=== PATIENT | female | born 1960 | race Caucasian/White ===

== ENCOUNTER 2024-08-20 08:09 | Outpatient (AMB) | payer BC, SELFPAY ==
[2024-08-20 08:13] VITALS: BP 128/60; BMI 24.0
--- NOTE | 2024-08-20 08:13 | MHC.PC.OV ---
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 Patient is not known to [facility]. Patient was previously being seen by PCP and has not been seen in over 4 years. She has a history of a heart attack 18 years ago and has a drug-eluting stent placed and has not been seen by Cardiology in several years. She has been smoking for the last 50 years and does mentioned that environmental factors affect her ability to quit. She lives in a household with several smokers and has a hard time with smoking cessation. She does mentioned she has left-sided shoulder pain for the last 4-5 months after having a fall. She denies any dizziness or lightheadedness prior to the fall the mentions as her balance and hitting her hip on the table and falling to the floor. She also mentions some left hip pain after this incident. [facility] Medical History (Updated 08/20/24 @ 12:29 by Ruby Baltazar PA-C) Myocardial infarct Family History (Updated 08/20/24 @ 08:31 by Ruby Baltazar PA-C) Brother Mouth cancer Social History Housing: House Patient Tobacco Use Status: Current everyday Tobacco user Cigarettes Per Day: 10 service: No Current occupational status: retired Cognitive needs: No Hearing needs: No Vision needs: Yes Questionnaire PHQ-9 Over the last 2 weeks, how often have you been bothered by any of the following problems? 1. Little interest or pleasure in doing things: not at all 2. Feeling down, depressed, or hopeless: not at all 3. Trouble falling or staying asleep, or sleeping too much: nearly every day 4. Feeling tired or having little energy: several days 5. Poor appetite or overeating: not at all 6. Feeling bad about yourself - or that you are a failure or have let yourself or your family down: several days 7. Trouble concentrating on things, such as reading the newspaper or watching television: nearly every day 8. Moving or speaking so slowly that other people could have noticed. Or the opposite - being so fidgety or restless that you have been moving around a lot more than usual: nearly every day 9. Thoughts that you would be better off or of hurting yourself in some way: not at all Total score: 11 Depression Screening Interpretation: Positive Depression Screening Follow-up: Existing condition Depression Screening Done: Yes [id number] - PHQ-9 Billing: Yes Source: Developed by Drs. Varghese Cheung, Luisa Broussard, Mike Reece and colleagues, with an educational ravi from [employer]. Thrive Questionnaire Date Thrive assessed: 08/20/24 I am a: Patient What is your living situation today?: I have a steady place to live Within the past 12 months, did the food you bought not last and you didn't have the money to get more?: Never true Within the past 12 months, did you worry whether your food would run out before you got money to buy more?: Never true Do you have trouble paying for medicines?: No Do you have trouble getting transportation to medical appointments?: Yes Do you have trouble paying your heating and electricity bill?: No Do you have trouble taking care of your child, family member or friend?: No Do you have trouble with day-to-day activities such as bathing, preparing meals, shopping, managing finances, etc.?: I choose not to answer this question Are you currently unemployed and looking for a job?: Yes Are you interested in more education?: No Please select the resources that you would like help with: None Currently or been in a relationship where the following occur: No concerns reported THRIVE Score: 1 AUDIT C Alcohol Use Questionnaire (AUDIT-C) 1. How often do you have a drink containing alcohol?: 2-4 times a month 2. How many drinks containing alcohol do you have on a typical day when you are drinking?: 1 or 2 3. How often do you have six or more drinks on one occasion?: Never Total Score: 2 SOCORRO-7 AMB Questionnaire SOCORRO-7 Date SOCORRO - 7 assessed: 08/20/24 Feeling nervous, anxious, or on edge: 0 = Not at all Not being able to stop or control worryin = Not at all Worrying too much about different things: 0 = Not at all Trouble relaxin = Not at all Being so restless that it is hard to sit still: 0 = Not at all Becoming easily annoyed or irritable: 0 = Not at all Feeling afraid as if something awful might happen: 0 = Not at all Total SOCORRO-7 score (0-4 normal; 5-9 mild; 10-14 moderate; 15-21 severe): 0 Source: Developed by Drs. Varghese Cheung, Luisa Broussard, Mike Reece and colleagues, with an educational ravi from [employer]. SOCORRO-7 Assessment Billing SOCORRO-7 Assessment Tool: SOCORRO-7 Assessment 73013 Review of Systems Const Denies body aches, Denies fatigue, Denies fever(s), Denies frequent falls, Denies headache(s) and Denies weakness Eyes Reports no additional complaints and Denies change in vision ENT Denies dysphagia, Denies dizziness, Denies facial pain, Denies headache(s), Denies nasal congestion and Denies odynophagia Card Denies chest pain, Denies syncope, Denies leg edema, Reports lightheadedness (with positional changes) and Denies dyspnea Resp Reports cough, Denies hemoptysis and Denies dyspnea GI Denies abdominal pain, Denies constipation, Denies dysphagia, Denies dyspepsia, Denies diarrhea, Denies nausea, Denies odynophagia and Denies vomiting Denies urinary frequency, Denies dysuria, Denies urinary hesitancy and Denies urinary urgency Musc Details: Left shoulder pain, left hip pain Denies back pain and Denies myalgias Skin/Breast Reports system reviewed and no additional complaints, except as documented Neuro Denies dizziness, Denies syncope, Denies frequent falls, Denies headache(s) and Denies weakness Psych Reports no additional complaints Endo Denies fatigue Physical exam (Primary Care) Vital Signs: Last Vital Signs BP 128/60 08/20/24 08:13 Oxygen Delivery Method Room Air 08/20/24 08:13 BMI result Body Mass Index 24.0 Tobacco/Smoking Status: Tobacco use Status Tobacco use date assessed 08/20/24 08/20/24 08:25 Patient Tobacco Use Status Current everyday Tobacco 08/20/24 08:25 Are you ready to quit: Yes Tobacco cessation counseling provided: Yes Items discussed: Nicotine replacement Relapse Prevention: discussed negative mood or depression after quitting and discussed dietary, exercise and/or lifestyle changes PHQ-9: PHQ-9 Score PHQ-9: Total score 11 08/20/24 08:44 Depression Screening Interpretation: Positive Depression Screening Follow-up: Existing condition Thrive Assessment: Date of Thrive Assessment Date Thrive assessed 08/20/24 08/20/24 08:25 Currently or been in a relationship where the following occur: No concerns reported Const General: cooperative, healthy appearing, comfortable and no acute distress Orientation/consciousness: patient oriented x3 HENMT Head: Yes normocephalic Ears: hearing grossly normal bilaterally General nose exam: Normal external nose present Eyes General: appearance normal, both eyes and all related structures Conjunctivae: conjunctivae normal Neck Neck: Yes full ROM and Yes no lymphadenopathy Resp Effort & Inspection: normal respiratory effort Auscultation: clear to auscultation bilaterally, no crackles, no rales, no rhonchi and no wheezes Cardio Rate: regular rate Rhythm: regular rhythm Skin General skin exam: no rashes or lesions noted Neuro General: patient oriented x3 Gait exam (Neuro): Normal gait present Extrem Other: Tenderness to palpation of left shoulder and pain with active range of motion General: Yes normal to inspection, Yes full ROM and No edema Psych Affect: normal affect Attitude: cooperative Insight: Good insight present (Psych) Judgement: Good judgement present (Psych) Coding Level of Care Code New Pt Level 4 (53438) Diagnoses Myocardial infarct I21.9 Screening for colorectal cancer Z12.11; Z12.12 Screening for breast cancer Z12.39 Left shoulder pain M25.512 Left hip pain M25.552 Tobacco abuse Z72.0 Additional Codes SOCORRO-7 Assessment Billing - SOCORRO-7 Assessment Tool: SOCORRO-7 Assessment 46499 ([id number]) Assessment & Plan Assessment & Plan (1) Myocardial infarct: Comment: 2018 Code(s): I21.9 - Acute myocardial infarction, unspecified Category: Medical Plan: She has a history of [place] 2018 and subsequent anoxic brain injury. Has not had follow up or blood work done in several years. Ordered for updated blood work and referral placed for Cardiology to establish new care. (2) Screening for colorectal cancer: Code(s): Z12.11 - Encounter for screening for malignant neoplasm of colon; Z12.12 - Encounter for screening for malignant neoplasm of rectum Category: Medical Plan: Referral placed for Cologuard testing. Patient has never had any screening for colorectal cancer. (3) Screening for breast cancer: Code(s): Z12.39 - Encounter for other screening for malignant neoplasm of breast Category: Medical Plan: Patient has last screened for mammogram several years ago it is not up-to-date. Order placed for mammogram. (4) Left shoulder pain: Code(s): M25.512 - Pain in left shoulder Category: Medical Plan: Patient complaining of left shoulder pain after a fall. Ordered for shoulder x-ray further evaluation. (5) Left hip pain: Code(s): M25.552 - Pain in left hip Category: Medical Plan: Patient complaining of pain in the left hip but declining x-ray at this time. Continue to monitor symptoms. (6) Tobacco abuse: Code(s): Z72.0 - Tobacco use Category: Medical Plan: Smoking cigarettes and the use of tobacco can be harmful. We discussed the importance of stopping and options to aid in smoking cessation. Lung cancer screening referral placed and nicotine patches sent. Plan This note was constructed using voice recognition software. While every effort has been made to ensure accuracy and case management coordinator, still areas may have been included sometimes these areas may affect the content or meeting of the given symptoms. Total time spent caring for the patient today was 30 minutes. This includes time spent before the visit reviewing the chart, time spent during the visit, and time spent after the visit and documentation. Orders: Orders MM tomosynthesis screening BI Today Z12.31 - Encounter for screening mammogram for malignant neoplasm of breast Complete Blood Count Auto Diff Today Z00.00 - Encounter for general adult medical examination without abnormal findings Comprehensive Met. Panel Today Z00.00 - Encounter for general adult medical examination without abnormal findings Lipid Panel Today Z00.00 - Encounter for general adult medical examination without abnormal findings TSH reflex Free T4 Today Z00.00 - Encounter for general adult medical examination without abnormal findings Vitamin D 25-OH (D2 and D3) Today Z00.00 - Encounter for general adult medical examination without abnormal findings XR shoulder LT min 2V Today M25.512 - Pain in left shoulder Free T4 (Free Thyroxine) Today Z00.00 - Encounter for general adult medical examination without abnormal findings Hemoglobin A1c Today Z00.00 - Encounter for general adult medical examination without abnormal findings Vitamin B12 and Folate Today Z00.00 - Encounter for general adult medical examination without abnormal findings Referrals Cardiology Referral I21.9 - Acute myocardial infarction, unspecified Lung Cancer Screening Referral Z72.0 - Tobacco use Cologuard Test Z12.11 - Encounter for screening for malignant neoplasm of colon Medications: New nicotine 1 patch transdermal DAILY 14 ea 0RF
== END 2024-08-20 08:52 | disposition home or self-care (01) ==
PROVIDERS: PCP Internal Medicine
DX: I21.9 Acute myocardial infarction, unspecified (principal); Z12.11 Encounter for screening for malignant neoplasm of colon; Z12.12 Encounter for screening for malignant neoplasm of rectum; Z12.39 Encounter for other screening for malignant neoplasm of breast; M25.512 Pain in left shoulder; M25.552 Pain in left hip; Z72.0 Tobacco use

== ENCOUNTER → 2024-08-20 08:09 | Outpatient (BNVA) | payer MEDICARE, BC, SELFPAY | PROVIDERS: PCP Internal Medicine | DX: I21.9 Acute myocardial infarction, unspecified (principal); M25.512 Pain in left shoulder; M25.552 Pain in left hip; Z72.0 Tobacco use; Z71.6 Tobacco abuse counseling | CPT/HCPCS: 96127 ==

== ENCOUNTER 2024-10-08 11:08 | Outpatient (REF) | payer MEDICARE, BC, SELFPAY ==
--- NOTE | ~2024-10-08 | MM_ITS ---
EXAMINATION: MM SCREENING DIGITAL BREAST TOMOSYNTHESIS, BILATERAL CLINICAL INFORMATION: Screening. Asymptomatic. COMPARISON: Mammography: Comparison is made with available priors TECHNIQUE: Digital breast mammography with tomosynthesis is performed in both the craniocaudal and mediolateral oblique views along with computer-aided detection (CAD). FINDINGS: There are scattered areas of fibroglandular density (ACR BI-RADS breast composition Category b). There are no significant masses, abnormal calcifications, or other abnormalities. MM/MM tomosynthesis screening BI IMPRESSION: No mammographic evidence of malignancy. ASSESSMENT: BI-RADS BI-RADS 1 - Negative RECOMMENDATION: Routine annual mammography screening. 1 year F/U This examination should not preclude the clinical evaluation of a suspicious palpable abnormality. This patient's information was entered into a reminder system with a target due date for their next mammogram. Electronically signed by: Elen Stiles DO 10/29/2024 09:59 AM [facility]
[2024-10-08 12:11] LABS: MANUAL DIFF FLAG NO
[2024-10-08 12:54] LABS: Estimated Average Glucose 108 mg/dL; Hemoglobin A1C 125.8413 umol/L; Hemoglobin A1c % 5.4 % (<6.0); Total Hemoglobin (HGBA1C) 3568.3635 umol/L
[2024-10-08 12:57] LABS: Basophils Absolute Auto 0.1 X10*3/uL (0.0-0.2); Basophils Percent Auto 0.7 % (0-2); Eosinophils Absolute Auto 0.2 X10*3/uL (0.0-0.4); Eosinophils Percent Auto 1.8 % (0-4); Hematocrit 42.2 % (37.0-47.0); Imm Gran Abs Auto 0.03 X10*3/uL (0.00-0.03); Imm Gran Pct Auto 0.4 % (0.0-0.4); Lymphocytes Absolute Auto 2.1 X10*3/uL (1.2-4.9); Lymphocytes Percent Auto 24.6 % (20-40); Mean Corpuscular HGB Conc 33.2 g/dl (31.0-35.0); Mean Corpuscular Hemoglobin 31.5 pg (27.0-33.0); Mean Corpuscular Volume 94.8 fL (80.0-98.0); Mean Platelet Volume 9.6 fL (9.4-12.3); Monocytes Absolute Auto 0.5 X10*3/uL (0.1-1.2); Monocytes Percent Auto 5.6 % (2-11); Neutrophils Absolute Auto 5.6 x10*3/uL (2.0-8.3); Neutrophils Percent Auto 66.9 % (45-73); Platelet Count 311 X10*3/uL (160-400); Red Blood Count 4.45 X10*6/uL (4.20-5.50); Red Cell Distribution Width 12.1 % (11.0-16.0); White Blood Count 8.4 X10*3/uL (4.8-10.8)
[2024-10-08 13:28] LABS: Alanine Aminotransferase 15 U/L (0-31); Albumin Level 4.1 g/dL (3.5-5.0); Alkaline Phosphatase 107 U/L (39-117); Anion Gap 11 (12-20); Aspartate Amino Transferase 19 U/L (5-31); Bilirubin Total 0.3 mg/dL (0.0-1.0); Blood Urea Nitrogen 16 mg/dL (9-16); Calcium 9.5 mg/dL (8.4-10.2); Carbon Dioxide 29 mmol/L (22-29); Chloride 108 mmol/L (96-108); Cholesterol 213 mg/dL (<200); Estimated Glomerular Filt Rate > 60; Glucose Random 114 mg/dL (60-115); HDL Cholesterol 60 mg/dL (>40); LDL Cholesterol Calculated 130 mg/dL (<100); Potassium 4.4 mmol/L (3.3-5.1); Sodium 144 mmol/L (135-145); Total Protein 7.6 g/dL (6.5-8.0); Triglycerides 117 mg/dL (<150)
[2024-10-08 13:34] LABS: Free T4 (Free Thyroxine) 1.12 ng/dL (0.71-1.85); TSH reflex Free T4 2.64 uIU/mL (0.32-4.0)
[2024-10-08 13:43] LABS: Folate 8.9 ng/mL (> or = 4.0); Vitamin B12 514 pg/mL (200-900)
[2024-10-12 16:24] LABS: Vitamin D 25-OH, D2 <4 ng/mL; Vitamin D 25-OH, D3 36 ng/mL; Vitamin D 25-OH, Total 36 ng/mL (30-100)
== END 2024-10-08 11:09 | disposition home or self-care (01) ==
LOC: HO.MAMMO 11:08
DX: Z00.00 Encounter for general adult medical examination without abnormal findings (principal); Z12.31 Encounter for screening mammogram for malignant neoplasm of breast; M25.512 Pain in left shoulder; Z13.1 Encounter for screening for diabetes mellitus
CPT/HCPCS: 36415; 73030; 77063; 77067; 80053; 80061; 82306; 82607; 82746; 83036; 84439; 84443; 85025

== ENCOUNTER → 2024-10-08 11:15 | Outpatient (BNV) | payer MEDICARE, BC, SELFPAY | PROVIDERS: Visit Provider Internal Medicine | DX: Z12.31 Encounter for screening mammogram for malignant neoplasm of breast (principal) | CPT/HCPCS: 77063; 77067 ==

== ENCOUNTER 2024-10-26 10:20 | Outpatient (AMB) | payer MEDICARE, BC, SELFPAY ==
--- NOTE | 2024-10-26 07:42 | MHC.OFFVIS ---
Intake Visit Reasons: Current Smoker Allergies No Known Allergies Allergy (Verified 08/20/24 08:26) HPI HPI Current Smoker: Details: Initial visit for this 64yo smoker with a 30PYH. Patient started smoking at age 14 for 50 years at 1/2-3/4ppd. Now at 1/4-1/2ppd. . Reports daily marijuana use. Repots social second hand smoke exposure. Denies exposure to chemicals or substances like asbestos. . Denies known family history of lung cancer. Brother at 61yo of throat cancer. Denies personal history of cancers. Denies chest CT in last year. . Denies recent travel outside the [place]. Denies recent respiratory illness or recent hospitalization for respiratory issues. Denies testing positive for COVID. Admits receiving COVID Vaccine. x 3. . Denies fever, chills, new/worsening cough, hemoptysis, hoarseness or dysphagia. Denies significant chest pain, significant dyspnea or unintentional weight loss. Patient Lung Cancer Screening Questionnaire reviewed with patient by provider. . Shared Decision Making Completed. Patient meets criteria. Discussed in detail with patient, the risk vs benefit of LDCT screening. Patient consents to proceed with scan. Discussed smoking cessation. [facility] Medical History (Updated 10/26/24 @ 10:48 by Chelo Macias PA-C) CAD (coronary artery disease) History of myocardial infarction Nicotine dependence, cigarettes, uncomplicated Surgical History (Updated 10/26/24 @ 10:40 by Chelo Macias PA-C) History of loop electrical excision procedure (LEEP) History of heart artery stent Family History (Updated 08/20/24 @ 08:31 by Ruby Baltazar PA-C) Brother Mouth cancer Social History (Updated 10/26/24 @ 10:33 by Chelo Macias PA-C) Housing: House Patient Tobacco Use Status: Current everyday Tobacco user Cigarettes Per Day: 10 Years Smoked: (onset 14yo, 1/2-3/4ppd x 50yrs, now 10/27-1/2ppd - 30pyh) service: No Current occupational status: retired Cognitive needs: No Hearing needs: No Vision needs: Yes Assessment & Plan Assessment & Plan (1) Nicotine dependence, cigarettes, uncomplicated: Comment: (onset 14yo, 1/2-3/4ppd x 50yrs, now 10/27-1/2ppd - 30pyh) Code(s): F17.210 - Nicotine dependence, cigarettes, uncomplicated Category: Medical Plan: - SDM visit completed today in office. - Patient meets criteria for LDCT for lung cancer screening purposes and is asymptomatic. - Smoking cessation counseling offered. Patients can always call [phone]. - Will arrange for a LDCT scan of the chest for screening purposes at [facility]. - Risks, benefits, and alternatives were discussed in detail and the patient agrees to proceed. - Risks discussed include but are not limited to: radiation exposure, anxiety during testing and while awaiting results, false negatives, false positives and possibility of additional intervention such as further imaging or surgical procedures for benign disease. - Benefits are obviously detection of lung cancer at an early stage which can lead to improved outcomes. - Discussed the importance of screening program compliance with adherence to yearly LDCT scan as scheduled - or sooner interval scans for personalized screening regimen. - Discussed follow up plan. Our office will send a letter discussing results and if needed set up phone call and office visit based on CT findings. - Patient educated on results categorization and the management decisions for suspicious findings potentially found on the screening LDCT scan. Any patient with a Lung RADS score of 3 or 4 will be reviewed by a multidisciplinary team at [facility] to form a plan of action in regards to scan findings. - If further work up is warranted for a suspicious lung finding this will be followed by the Lung Cancer Screening program in conjunction with the Thoracic Surgery Department at [facility]. - A copy of the office note and LDCT will be sent to the patient's PCP - as well as documentation on any associated further plans of care. - Incidental findings on LDCT are the PCP's responsibility. These findings are indicated with an S finding on the LDCT Assessment. A note discussing the findings will be sent to the PCP who is then responsible for further management. - All questions answered.? Coding Level of Care Code Lung Cancer Screening G0296 Diagnoses Nicotine dependence, cigarettes, uncomplicated F17.210
== END 2024-10-26 12:44 | disposition home or self-care (01) ==
PROVIDERS: Visit Provider Physician Assistant Medical
DX: F17.210 Nicotine dependence, cigarettes, uncomplicated (principal)
CPT/HCPCS: G0296

== ENCOUNTER 2024-10-26 10:45 | Outpatient (REF) | payer MEDICARE, BC, SELFPAY ==
--- NOTE | ~2024-10-26 | CT_ITS ---
EXAMINATION: CT LUNG SCREENING HISTORY: Smoking history TECHNIQUE: Low dose axial images were obtained from the sternal notch to upper abdomen without IV contrast per standard departmental protocol. Sagittal and coronal reformatted images were also obtained and reviewed. One or more of the following techniques was used for dose reduction: Automated exposure control, adjustment of the mA and/or kV according to patient size, use of iterative reconstruction technique. DLP: 44 mGy-cm COMPARISON: There are no prior studies for comparison. FINDINGS: Lung nodules: There are scattered punctate calcified granulomas in both lungs. No additional pulmonary nodules are identified. Emphysema: none Coronary Calcification: moderate Aortic Arch Calcification: mild Potentially Significant Incidentals : none Additional Chest Findings: There is no pleural or pericardial effusion. No mediastinal or axillary lymphadenopathy is identified. Visualized upper abdomen: The visualized portions of the liver, spleen, and adrenals have an unremarkable unenhanced appearance. There is a small hiatal hernia. CT/CT lung screening IMPRESSION: No suspicious pulmonary nodules are identified. LUNG-RADS ASSESSMENT: Lung-RADS 2: Benign MANAGEMENT: Continue annual screening with LDCT in 12 months Category S: N/A Electronically signed by: Varghese Gusman MD 10/29/2024 08:27 AM [facility]
== END 2024-10-26 10:46 | disposition home or self-care (01) ==
LOC: HO.CT 10:45
PROVIDERS: Visit Provider Physician Assistant Medical
DX: Z12.2 Encounter for screening for malignant neoplasm of respiratory organs (principal); F17.210 Nicotine dependence, cigarettes, uncomplicated
CPT/HCPCS: 71271; G0296

== ENCOUNTER → 2024-10-26 10:47 | Outpatient (BNV) | payer MEDICARE, BC, SELFPAY | PROVIDERS: Visit Provider Radiology Diagnostic Radiology | DX: Z87.891 Personal history of nicotine dependence (principal) | CPT/HCPCS: 71271 ==

== ENCOUNTER 2024-10-29 09:06 | Outpatient (AMB) | payer MEDICARE, BC, SELFPAY ==
[2024-10-29 09:09] VITALS: BP 124/80; PULSE 90; O2SAT 97; BMI 23.5
--- NOTE | 2024-10-29 09:09 | A.OFFPC_ITS ---
Vital Signs 10/29/24 09:09 Height 5 ft Weight 120 lb 6 oz BMI 23.5 BP 124/80 Blood Pressure Location Lt brachial Position Sitting Pulse 90 Pulse Source Pulse Oximeter Pulse Oximetry (%) 97 Oxygen Delivery Method Room Air Intake Visit Reasons: annual exam Comb Winder Required: No Accompanied by: Self / Same As Patient Allergies No Known Allergies Allergy (Verified 10/29/24 09:30) Medication List - Last Reconciled 10/29/24 by Ruby Baltazar PA-C aspirin 81 mg PO DAILY calcium carbonate (Tums) 200 mg PO BID cholecalciferol (vitamin D3) 50 mcg PO DAILY clopidogrel 75 mg PO DAILY donepezil 5 mg PO BEDTIME nicotine 1 patch transdermal DAILY simvastatin 80 mg PO BEDTIME Tobacco use date assessed: 10/29/24 Dental Screening Dental Screen Date: 10/29/24 Did you have a dental visit in the last 12 months?: No Did you have a dental problem in the last 6 months where you did not have access to dental care?: No Was dental information given to patient?: No HPI annual exam HPI Details 64-year-old female with past medical his tory of hyperlipidemia, coronary artery disease and history of myocardial infarction last seen July 2024 coming in for annual exam.? In review of the notes, patient was seen by pulmonology annual lung cancer screening which was negative follow up in one year. Cologuard negative done 2023 repeat in 3 years. Mammogram completed will follow up in one year. Patient tells us today she discontinue the Chantix as it was helping her to smoke more often. She is down to 4 cigarettes per day from half a pack. She continues to have left-sided shoulder pain awaiting x-ray at this time. She also mentioned she has a diffuse rash that we will start as a pustule and she will pick at it until it is a flat rash and has scars from this. This has been going on since 2017. [facility] Medical History CAD (coronary artery disease) History of myocardial infarction Hyperlipidemia Nicotine dependence, cigarettes, uncomplicated Surgical History History of loop electrical excision procedure (LEEP) History of heart artery stent Family History Brother Mouth cancer Social History Housing: House Patient Tobacco Use Status: Current everyday Tobacco user Cigarettes Per Day: 10 Years Smoked: (onset 14yo, 1/2-3/4ppd x 50yrs, now 14-1/2ppd - 30pyh) e-Cigarette/Vaping Use: Never Used service: No Current occupational status: retired Cognitive needs: No Hearing needs: No Vision needs: Yes Questionnaire PHQ-9 Over the last 2 weeks, how often have you been bothered by any of the following problems? 1. Little interest or pleasure in doing things: not at all 2. Feeling down, depressed, or hopeless: not at all 3. Trouble falling or staying asleep, or sleeping too much: nearly every day 4. Feeling tired or having little energy: several days 5. Poor appetite or overeating: not at all 6. Feeling bad about yourself - or that you are a failure or have let yourself or your family down: several days 7. Trouble concentrating on things, such as reading the newspaper or watching television: nearly every day 8. Moving or speaking so slowly that other people could have noticed. Or the opposite - being so fidgety or restless that you have been moving around a lot more than usual: nearly every day 9. Thoughts that you would be better off or of hurting yourself in some way: not at all Total score: 11 Depression Screening Interpretation: Positive Depression Screening Follow-up: Existing condition and New Medication prescribed Depression Screening Done: Yes 16167 - PHQ-9 Billing: Yes Source: Developed by Drs. Varghese Cheung, Luisa Broussard, Mike Reece and colleagues, with an educational ravi from [employer]. Thrive Questionnaire Date Thrive assessed: 10/29/24 I am a: Patient What is your living situation today?: I have a steady place to live Within the past 12 months, did the food you bought not last and you didn't have the money to get more?: I choose not to answer this question Within the past 12 months, did you worry whether your food would run out before you got money to buy more?: I choose not to answer this question Do you have trouble paying for medicines?: I choose not to answer this question Do you have trouble getting transportation to medical appointments?: I choose not to answer this question Do you have trouble paying your heating and electricity bill?: I choose not to answer this question Do you have trouble taking care of your child, family member or friend?: I choose not to answer this question Do you have trouble with day-to-day activities such as bathing, preparing meals, shopping, managing finances, etc.?: I choose not to answer this question Are you currently unemployed and looking for a job?: I choose not to answer this question Are you interested in more education?: I choose not to answer this question Please select the resources that you would like help with: None Currently or been in a relationship where the following occur: I choose not to answer THRIVE Score: 0 AUDIT C Alcohol Use Questionnaire (AUDIT-C) 1. How often do you have a drink containing alcohol?: Never Total Score: 0 SOCORRO-7 AMB Questionnaire SOCORRO-7 Date SOCORRO - 7 assessed: 10/29/24 Feeling nervous, anxious, or on edge: 0 = Not at all Not being able to stop or control worryin = Not at all Worrying too much about different things: 0 = Not at all Trouble relaxin = Not at all Being so restless that it is hard to sit still: 0 = Not at all Becoming easily annoyed or irritable: 0 = Not at all Feeling afraid as if something awful might happen: 0 = Not at all Total SOCORRO-7 score (0-4 normal; 5-9 mild; 10-14 moderate; 15-21 severe): 0 Source: Developed by Drs. Varghese Cheung, Luisa Broussard, Mike Reece and colleagues, with an educational ravi from [employer]. Review of Systems Const Denies body aches, Denies fatigue, Denies fever(s), Denies frequent falls, Denies headache(s) and Denies weakness Eyes Details: Dr. Vyas. Cataracts Reports no additional complaints, Denies change in vision and Reports requires corrective lenses ENT Denies dizziness, Denies facial pain, Denies headache(s) and Denies nasal congestion Card Denies chest pain, Denies syncope, Denies irregular heart rhythm, Denies leg edema, Denies lightheadedness and Denies dyspnea Resp Denies cough and Denies dyspnea GI Denies abdominal pain, Denies constipation, Denies dyspepsia, Denies diarrhea, Denies nausea and Denies vomiting Denies urinary frequency, Denies dysuria, Denies urinary hesitancy and Denies urinary urgency Musc Denies back pain and Denies myalgias Skin/Breast Reports system reviewed and no additional complaints, except as documented Neuro Denies dizziness, Denies syncope, Denies frequent falls, Denies headache(s) and Denies weakness Psych Reports no additional complaints Endo Denies fatigue Physical exam (Primary Care) Vital Signs: Last Vital Signs Pulse 90 10/29/24 09:09 BP 124/80 10/29/24 09:09 Pulse Ox 97 10/29/24 09:09 Oxygen Delivery Method Room Air 10/29/24 09:09 BMI result Body Mass Index 23.5 Tobacco/Smoking Status: Tobacco use Status Tobacco use date assessed 10/29/24 10/29/24 09:10 Patient Tobacco Use Status Current everyday Tobacco 10/29/24 09:10 e-Cigarette/Vaping Use Never Used 10/29/24 09:10 Are you ready to quit: No Tobacco cessation counseling provided: Yes Items discussed: Nicotine replacement Relapse Prevention: discussed extending NRT, weight gain after smoking is common and discussed dietary, exercise and/or lifestyle changes Number of minutes spent counselin CPT code: 47938 - 4-10 Minutes PHQ-9: PHQ-9 Score PHQ-9: Total score 11 10/29/24 09:44 Depression Screening Interpretation: Positive Depression Screening Follow-up: Existing condition and New Medication prescribed Thrive Assessment: Date of Thrive Assessment Date Thrive assessed 10/29/24 10/29/24 09:10 Currently or been in a relationship where the following occur: I choose not to answer Const General: cooperative, healthy appearing, comfortable and no acute distress Orientation/consciousness: patient oriented x3 HENMT Head: Yes normocephalic Ears: hearing grossly normal bilaterally, external ears normal, TM's normal bilaterally and EAC's normal General nose exam: Normal external nose present Face and sinus: Yes normal facial exam and Yes sinuses nontender Mouth: Normal oral and palatal mucosa present and tongue normal Throat: Yes posterior oropharynx normal Eyes General: appearance normal, both eyes and all related structures Conjunctivae: conjunctivae normal Pupils: Equal, round and reactive pupils present EOM: EOMs intact bilaterally and No Nystagmus present Neck Neck: Yes normal visual inspection, Yes full ROM and Yes no lymphadenopathy Chest Chest palpation & inspection: normal inspection of the chest Resp Effort & Inspection: normal respiratory effort Auscultation: clear to auscultation bilaterally, no crackles, no rales, no rhonchi, no wheezes and breath sounds present Cardio Rate: regular rate Rhythm: regular rhythm Peripheral pulses: radial pulses present and dorsalis pedis present GI Inspection: Yes normal to inspection and No Abdominal wall edema Palpation (GI): Soft to palpation, not firm and nontender Auscultation: normal bowel sounds Rectal Exam - Female: deferred General: Yes no CVA tenderness Back/Spine/Pelvis Back: no CVA tenderness Skin General skin exam: no rashes or lesions noted Neuro General: patient oriented x3 Cranial nerves: Yes Equal, round and reactive pupils present, Yes Midline tongue present, Yes Ability to bilaterally elevate shoulders present and No Nystagmus present Gait exam (Neuro): Normal gait present Extrem General: Yes normal to inspection, Yes full ROM, No no pedal edema and No edema Psych Speech and movement: Normal speech and movement present Affect: normal affect Insight: Good insight present (Psych) Judgement: Good judgement present (Psych) Coding Level of Care Code Est Pt Level 3 (98337) Est Pt Prev Care 40-64y(18741) Diagnoses Hyperlipidemia E78.5 CAD (coronary artery disease) I25.10 History of myocardial infarction I25.2 Nicotine dependence, cigarettes, uncomplicated F17.210 Screening for breast cancer Z12.39 Screening for colorectal cancer Z12.11; Z12.12 Annual physical exam Z00.00 Shortness of breath R06.02 Rash R21 Left shoulder pain M25.512 Depression F32.A Additional Codes PHQ-9 - 90950 - PHQ-9 Billing: Yes ([id number]) Vital Signs *Quality* - CPT code: 22845 - 4-10 Minutes ([id number]) Assessment & Plan Assessment & Plan (1) Hyperlipidemia: Code(s): E78.5 - Hyperlipidemia, unspecified Category: Medical Plan: Avoid foods that are high in cholesterol such as red meat, fried foods, eggs and baked goods. Triglyceride goal of less than 150 and LDL goal of less than 70. Given patient's history of myocardial infarction and coronary artery disease with drug-eluting stent recommending high-intensity statin. ASCVD risk score is elevated and recommending statin. Patient was previously on simvastatin 80 mg but has not taken his medication in several months. We will start on rosuvastatin 5 mg daily. Follow up in 3 months with repeat cholesterol labs (2) CAD (coronary artery disease): Comment: (Hx NE and POLI to LAD 06/2006) Code(s): I25.10 - Atherosclerotic heart disease of [place] coronary artery without angina pectoris Category: Medical Plan: Patient has history of coronary artery disease and myocardial infarction has a appointment with Cardiology scheduled in the next coming months. Advised good control of blood pressure, blood sugar and cholesterol. On aspirin and rosuvastatin. (3) History of myocardial infarction: Comment: (history of NE 2005 and subsequent anoxic brain injury) Code(s): I25.2 - Old myocardial infarction Category: Medical Plan: Has a appointment with Cardiology in the next coming months. (4) Nicotine dependence, cigarettes, uncomplicated: Comment: (onset 14yo, 1/2-3/4ppd x 50yrs, now 1/4-1/2ppd - 30pyh) Code(s): F17.210 - Nicotine dependence, cigarettes, uncomplicated Category: Medical Plan: Smoking cigarettes and the use of tobacco can be harmful. We discussed the importance of stopping and options to aid in smoking cessation. Lung cancer screening program enrolled and recent CT was negative. Continue to use nicotine replacement therapy. (5) Screening for breast cancer: Code(s): Z12.39 - Encounter for other screening for malignant neoplasm of breast Category: Medical Plan: Completed follow up in 1 year. (6) Screening for colorectal cancer: Code(s): Z12.11 - Encounter for screening for malignant neoplasm of colon; Z12.12 - Encounter for screening for malignant neoplasm of rectum Category: Medical Plan: Patient completed Cologuard testing which was negative follow up in 3 years. (7) Annual physical exam: Code(s): Z00.00 - Encounter for general adult medical examination without abnormal findings Category: Medical Plan: Patient is up-to-date on all recommended routine screenings and vaccinations for her age. Blood work is up-to-date we will follow up in 3 months for repeat cholesterol. (8) Shortness of breath: Code(s): R06.02 - Shortness of breath Category: Medical Plan: Patient complaining of occasional shortness of breath she is a current everyday smoker states with long distances she will become short of breath without any chest pain. Ordered for pulmonary function testing. (9) Rash: Code(s): R21 - Rash and other nonspecific skin eruption Category: Medical Plan: Patient complaining of nonspecific rash advised to use topical emollients such as Aquaphor or Vaseline and referral placed to Dermatology. (10) Left shoulder pain: Code(s): M25.512 - Pain in left shoulder Category: Medical Plan: Patient complaining of left shoulder pain awaiting x-ray at this time. Can c onsider orthopedics or physical therapy referral. (11) Depression: Code(s): F32.A - Depression, unspecified Category: Medical Plan: Patient has a history of depression previously being treated with fluoxetine. She has not been on fluoxetine in several years but stated was helpful in low doses. We will restart on fluoxetine 10 mg and follow up in 3 months. Plan This note was constructed using voice recognition software. While every effort has been made to ensure accuracy and [employer], still areas may have been included sometimes these areas may affect the content or meeting of the given symptoms. Total time spent caring for the patient today was 30 minutes. This includes time spent before the visit reviewing the chart, time spent during the visit, and time spent after the visit and documentation. Orders: Orders Lipid Panel 3 Months E78.00 - Pure hypercholesterolemia, unspecified PFT pulmonary function test Today F17.210 - Nicotine dependence, cigarettes, uncomplicated, R06.02 - Shortness of breath Liver Panel Today E78.5 - Hyperlipidemia, unspecified Referrals Dermatology Referral R21 - Rash and other nonspecific skin eruption Medications: New fluoxetine 10 mg PO DAILY 90 tabs 2RF rosuvastatin 5 mg PO DAILY 90 tabs 3RF
== END 2024-10-29 10:08 | disposition home or self-care (01) ==
DX: Z00.00 Encounter for general adult medical examination without abnormal findings (principal); E78.5 Hyperlipidemia, unspecified; I25.10 Atherosclerotic heart disease of native coronary artery without angina pectoris; I25.2 Old myocardial infarction; F17.210 Nicotine dependence, cigarettes, uncomplicated; Z12.39 Encounter for other screening for malignant neoplasm of breast; Z12.11 Encounter for screening for malignant neoplasm of colon; Z12.12 Encounter for screening for malignant neoplasm of rectum; R06.02 Shortness of breath; R21 Rash and other nonspecific skin eruption; M25.512 Pain in left shoulder; F32.A Depression, unspecified

== ENCOUNTER → 2024-10-29 09:06 | Outpatient (BNVA) | payer MEDICARE, BC, SELFPAY | DX: Z00.00 Encounter for general adult medical examination without abnormal findings (principal); I25.10 Atherosclerotic heart disease of native coronary artery without angina pectoris; I25.2 Old myocardial infarction; F17.210 Nicotine dependence, cigarettes, uncomplicated; R06.02 Shortness of breath; R21 Rash and other nonspecific skin eruption; M25.512 Pain in left shoulder; F32.A Depression, unspecified; E78.00 Pure hypercholesterolemia, unspecified | CPT/HCPCS: 96127; 99212; 99396 ==

== ENCOUNTER 2024-11-30 09:10 | Outpatient (REF) | payer MEDICARE, BC, SELFPAY ==
--- NOTE | 2024-11-30 09:19 | PFT_ITS ---
Flows: FEV1: 115 % of predicted at 2.44 L FVC: 109 % of predicted at 2.93 L FEV1/FVC: 83 % Bronchodilator response: Present in small to medium airways only Volumes: Total lung capacity: 94 % of predicted at 4.22 L Residual volume: 79 % of predicted at 1.27 L Slow vital capacity: 101 % of predicted at 2.94 L Expiratory reserve volume: 179 % of predicted at 1.21 L Diffusion capacity: Normal Impression: No obstructive or restrictive ventilatory defect. Bronchodilator response is present in small to medium airways only. MTDD
== END 2024-11-30 09:11 | disposition home or self-care (01) ==
LOC: HO.RESP 09:10
DX: R06.02 Shortness of breath (principal); F17.210 Nicotine dependence, cigarettes, uncomplicated
CPT/HCPCS: 94010; 94640; 94727; 94729

== ENCOUNTER → 2024-11-30 09:19 | Outpatient (BNV) | payer MEDICARE, BC, SELFPAY | PROVIDERS: Visit Provider Internal Medicine Pulmonary Disease | DX: R06.02 Shortness of breath (principal); F17.210 Nicotine dependence, cigarettes, uncomplicated | CPT/HCPCS: 94060; 94727; 94729 ==

== ENCOUNTER → 2024-12-14 15:14 | Outpatient (BNVA) | payer MEDICARE, BC, SELFPAY | PROVIDERS: Visit Provider Internal Medicine | DX: I25.10 Atherosclerotic heart disease of native coronary artery without angina pectoris (principal); E78.5 Hyperlipidemia, unspecified; F17.210 Nicotine dependence, cigarettes, uncomplicated; R94.31 Abnormal electrocardiogram [ECG] [EKG] | CPT/HCPCS: 93005; 99202 ==

== ENCOUNTER 2025-01-28 08:21 | Outpatient (AMB) | payer MEDICARE, BC, SELFPAY ==
--- NOTE | 2025-01-28 08:24 | A.OFFPC_ITS ---
Vital Signs 01/28/25 08:25 Height 5 ft Weight 117 lb 6 oz BMI 22.9 BP 132/76 Blood Pressure Location Lt brachial Position Sitting Pulse 90 Pulse Source Pulse Oximeter Temp 96.6 F L Temp Source Temporal Artery Scan Pulse Oximetry (%) 99 Oxygen Delivery Method Room Air Intake Visit Reasons: f/u cholesterol Intake Note: Patient is here to follow up on Cholesterol. Can Pusher Required: No Personal Care Home Administrator: Not Required per policy Accompanied by: Self / Same As Patient Allergies No Known Allergies Allergy (Verified 01/28/25 08:32) Medication List - Last Reconciled 01/28/25 by Ruby Baltazar PA-C aspirin 81 mg PO DAILY calcium carbonate (Tums) 200 mg PO BID cholecalciferol (vitamin D3) 50 mcg PO DAILY fluoxetine 10 mg PO DAILY rosuvastatin 5 mg PO DAILY Tobacco use date assessed: 01/28/25 Dental Screening Dental Screen Date: 10/29/24 HPI f/u cholesterol HPI Details 64-year-old female with past medical his tory of hyperlipidemia, coronary artery disease and history of myocardial infarction last seen 10/2024 coming in for follow up. In review of the notes, patient was seen by Cardiology 12/14/2024 plan for echocardiogram/stress perfusion imaging study and continue on aspirin/statins. Patient completed her pulmonary function tests 12/04/2024 showing no obstructive or restrictive ventilatory defect. She is due for blood work and did not complete cholesterol labs. Presenting for a follow-up concerning her cardiovascular management, shoulder pain, and skin rash. Patient's prior myocardial infarction requires close management of her cholesterol, currently on rosuvastatin (5 mg). Previous episodes of elevated cholesterol now at 130 mg/dL, with target under 70 mg/dL due to cardiovascular history. Experiencing chronic shoulder pain potentially linked to rotator cuff issues, possibly muscular; aggravated by lifting and heavy use. Reports a persistent skin rash, predominately on her back, potentially attributable to a fungal infection. [facility] Medical History CAD (coronary artery disease) History of myocardial infarction Hyperlipidemia Nicotine dependence, cigarettes, uncomplicated Surgical History History of loop electrical excision procedure (LEEP) History of heart artery stent Family History Brother Mouth cancer Father Cerebral aneurysm Maternal Grandmother Heart attack Other Substance use disorder Social History Housing: House Alcohol intake: current Alcohol intake frequency: holidays/special occasions only Patient Tobacco Use Status: Current everyday Tobacco user Tobacco use type: Cigarette Cigarette Packs Per Day: 0.5 Cigarettes Per Day: 10 Years Smoked: (onset 14yo, 1/2-3/4ppd x 50yrs, now 10/27-1/2ppd - 30pyh) e-Cigarette/Vaping Use: Never Used Second Hand Smoke Exposure: Yes service: No Current occupational status: retired Cognitive needs: No Hearing needs: No Vision needs: Yes Questionnaire Thrive Questionnaire Date Thrive assessed: 10/29/24 I am a: Patient What is your living situation today?: I have a steady place to live Within the past 12 months, did the food you bought not last and you didn't have the money to get more?: I choose not to answer this question Within the past 12 months, did you worry whether your food would run out before you got money to buy more?: I choose not to answer this question Do you have trouble paying for medicines?: I choose not to answer this question Do you have trouble getting transportation to medical appointments?: I choose not to answer this question Do you have trouble paying your heating and electricity bill?: I choose not to answer this question Do you have trouble taking care of your child, family member or friend?: I choose not to answer this question Do you have trouble with day-to-day activities such as bathing, preparing meals, shopping, managing finances, etc.?: I choose not to answer this question Are you currently unemployed and looking for a job?: I choose not to answer this question Are you interested in more education?: I choose not to answer this question Please select the resources that you would like help with: None Currently or been in a relationship where the following occur: I choose not to answer THRIVE Score: 0 AUDIT C Alcohol Use Questionnaire (AUDIT-C) 2. How many drinks containing alcohol do you have on a typical day when you are drinking?: 3 or 4 3. How often do you have six or more drinks on one occasion?: Never Total Score: 1 SOCORRO-7 AMB Questionnaire SOCORRO-7 Date SOCORRO - 7 assessed: 10/29/24 Source: Developed by Drs. Varghese Cheung, Luisa Broussard, Mike Reece and colleagues, with an educational ravi from [employer]. Review of Systems Const Denies body aches, Denies chills, Denies fever(s), Denies headache(s) and Denies poor appetite Eyes Reports no additional complaints ENT Denies dizziness and Denies headache(s) Card Denies chest pain, Denies syncope, Denies edema, Denies irregular heart rhythm, Denies lightheadedness and Denies dyspnea Resp Denies cough and Denies dyspnea GI Denies abdominal pain, Denies constipation, Denies diarrhea, Denies nausea and Denies vomiting Reports no additional complaints Musc Details: left shoulder pain Reports no additional complaints and Denies abnormal gait Skin/Breast Details: She hypopigmented rash on upper back Neuro Denies abnormal gait, Denies dizziness, Denies syncope and Denies headache(s) Psych Reports no additional complaints Physical exam (Primary Care) Vital Signs: Last Vital Signs Temp 96.6 F L 01/28/25 08:25 Pulse 90 01/28/25 08:25 BP 132/76 01/28/25 08:25 Pulse Ox 99 01/28/25 08:25 Oxygen Delivery Method Room Air 01/28/25 08:25 BMI result Body Mass Index 22.9 Tobacco/Smoking Status: Tobacco use Status Tobacco use date assessed 01/28/25 01/28/25 08:31 Patient Tobacco Use Status Current everyday Tobacco 01/28/25 08:31 Tobacco use type Cigarette 01/28/25 08:31 e-Cigarette/Vaping Use Never Used 01/28/25 08:31 Thrive Assessment: Date of Thrive Assessment Date Thrive assessed 10/29/24 01/28/25 08:31 Currently or been in a relationship where the following occur: I choose not to answer Const General: cooperative, healthy appearing, comfortable and no acute distress Orientation/consciousness: patient oriented x3 HENMT Head: Yes normocephalic Ears: hearing grossly normal bilaterally General nose exam: Normal external nose present Eyes General: appearance normal, both eyes and all related structures Conjunctivae: conjunctivae normal Neck Neck: Yes full ROM and Yes no lymphadenopathy Resp Effort & Inspection: normal respiratory effort Auscultation: clear to auscultation bilaterally, no crackles, no rales, no rhonchi and no wheezes Cardio Rate: regular rate Rhythm: regular rhythm Skin Other: Areas of hypopigmentation on the upper back and bilateral shoulders in patches. No tenderness to palpation no areas of erythema. There are areas of excoriation from where the patient has been scratching General skin exam: no rashes or lesions noted Neuro General: patient oriented x3 Gait exam (Neuro): Normal gait present Extrem General: Yes normal to inspection, Yes full ROM and No edema Psych Affect: normal affect Attitude: cooperative Insight: Good insight present (Psych) Judgement: Good judgement present (Psych) Coding Level of Care Code Est Pt Level 4 (20708) Diagnoses Hyperlipidemia E78.5 CAD (coronary artery disease) I25.10 Nicotine dependence, cigarettes, uncomplicated F17.210 Rash R21 Left shoulder pain M25.512 Assessment & Plan Assessment & Plan (1) Hyperlipidemia: Code(s): E78.5 - Hyperlipidemia, unspecified Category: Medical Plan: Avoid foods that are high in cholesterol such as red meat, fried foods, eggs and baked goods. Triglyceride goal of less than 150 and LDL goal of less than 70. Continue on rosuvastatin 5 mg. I updated the blood work ordered reminded patient about blood work. (2) CAD (coronary artery disease): Comment: (Hx CA and POLI to LAD 06/2006) Code(s): I25.10 - Atherosclerotic heart disease of [place] coronary artery without angina pectoris Category: Medical Plan: Recently seen by Cardiology echocardiogram and stress test ordered. Continue on aspirin. We will likely need to increase the rosuvastatin however patient is due for blood work. Reminded patient about blood work. (3) Nicotine dependence, cigarettes, uncomplicated: Comment: (onset 14yo, 1/2-3/4ppd x 50yrs, now 1/4-1/2ppd - 30pyh) Code(s): F17.210 - Nicotine dependence, cigarettes, uncomplicated Category: Medical Plan: Lung cancer screening performed 10/2024 clear advised to follow up in 1 year. Smoking cigarettes and the use of tobacco can be harmful. We discussed the importance of stopping and options to aid in smoking cessation. (4) Rash: Code(s): R21 - Rash and other nonspecific skin eruption Category: Medical Plan: Patient has areas of hypopigmentation of the upper back in bilateral shoulders consistent with probable tinea versicolor.Plan to start on topical terbinafine and advised to follow up with fire prevention captain if rash is not clear. (5) Left shoulder pain: Code(s): M25.512 - Pain in left shoulder Category: Medical Plan: Patient complaining of chronic left shoulder pain recent x-ray was negative for arthritis or abnormality. Advised heating pad and Tylenol as needed for pain. I did also recommend physical therapy or orthopedic evaluation which was declined today. Plan I will continue monitoring the patient's cardiovascular health by closely eval uating her cholesterol levels, adjusting her current rosuvastatin dosage if necessary. Immediate bloodwork is to be completed, enabling further assessment of her lipid profile. Her shoulder pain management plan includes obro-kls-vlxlgvy analgesics, potential physical therapy if symptoms persist, and avoidance of aggravating activities. For the persistent skin rash, I prescribed terbinafine cream and stressed the importance of dermatology follow-up should the condition not improve. The patient also received counseling on dietary habits and lifestyle changes to aid her cardiovascular and overall health. This note was constructed using voice recognition software. While every effort has been made to ensure accuracy and ict customer support officer, still areas may have been included sometimes these areas may affect the content or meeting of the given symptoms. Total time spent caring for the patient today was 20 minutes. This includes time spent before the visit reviewing the chart, time spent during the visit, and time spent after the visit and documentation. Patient was informed and verbally consented to the use of an ambient scribe for clinic note documentation during this visit. Medications: New terbinafine HCl 1% (Antifungal (terbinafine)) 1 appl topical BID 30 grams 0RF
[2025-01-28 08:25] VITALS: BP 132/76; PULSE 90; TEMP 35.9; O2SAT 99; BMI 22.9
== END 2025-01-28 08:58 | disposition home or self-care (01) ==
LOC: HO.HMCH 08:21
DX: E78.5 Hyperlipidemia, unspecified (principal); I25.10 Atherosclerotic heart disease of native coronary artery without angina pectoris; F17.210 Nicotine dependence, cigarettes, uncomplicated; R21 Rash and other nonspecific skin eruption; M25.512 Pain in left shoulder

== ENCOUNTER → 2025-01-28 08:21 | Outpatient (BNVA) | payer MEDICARE, BC, SELFPAY | DX: E78.5 Hyperlipidemia, unspecified (principal); I25.10 Atherosclerotic heart disease of native coronary artery without angina pectoris; R21 Rash and other nonspecific skin eruption; M25.512 Pain in left shoulder; F17.210 Nicotine dependence, cigarettes, uncomplicated; Z71.6 Tobacco abuse counseling | CPT/HCPCS: 99212 ==

== ENCOUNTER → 2025-03-22 08:06 | Outpatient (REF) | payer MEDICARE, BC, SELFPAY ==
--- NOTE | ~2025-03-22 | NM_ITS ---
Lexiscan Myocardial perfusion study Indication: Coronary artery disease Technique: The patient was brought in for a Lexiscan perfusion study on 03/22/2025 and was injected 0.4 mg of Lexiscan intravenously. Within a minute of this injection 25 mCi of sestamibi was given intravenously. Images were obtained using the SPECT gamma camera interlaced with the gating device. Images were obtained in supine position. Resting perfusion study was performed on 03/26/2025. Patient was administered 25 mCi of sestamibi intravenously at rest. Images were then obtained in supine position. Total DLP 61 mGy-cm. Images were processed with the software and compared side to side in short axis, horizontal long axis and vertical long axis views. Findings: Raw aquisition reviewed. The stress perfusion study showed diminished tracer uptake along the anterior wall, most prominent towards the apex. There is no significant change with CT attenuation correction. The gated study shows normal LV systolic function with calculated LVEF of 61%. LV cavity is normal in size. The gated study shows reduced contractility in the anterior wall most prominent towards the apex. Resting study shows reduced tracer uptake in the anterior wall, most prominent towards the apex. No significant change with CT attenuation correction. Gating at rest reveals reduced contractility in the anterior wall, worse in the apical portion and ejection fraction at 70%. The findings are consistent with mostly fixed anterior perfusion defect and minimal reversibility. NM/NM cardiolite stress test Impression: 1. Myocardial perfusion imaging study shows prior infarction in the anterior wall and septum; most prominent towards the distal anterior wall; minimal to mild luiz-infarct ischemia. 2. Gated LVEF is 61% during stress and 70% during rest. 3. Transient ischemic dilatation not present. EKG component of the test reported separately. Electronically signed by: Edmundo Rutherford MD 03/27/2025 03:42 PM EDT
--- NOTE | 2025-03-22 08:10 | CA_ITS ---
Acquisition Time: 2025-03-22 08:47:51 Total Exercise Time: 00:00:43 Test Indications: Dyspnea Medications: ASA FLUOXETINE ROSUVASTATIN Protocol: LOBITO Max HR: 110 BPM 70% of Pred: 156 BPM Max BP: 122/58 mmHG Max Work Load: 2.2 METS Exercise stress test with exercise 43 secs of Lobito Protocol, requesting to stop due to hip pain. Test switched to Lexiscan. Pharmacological stress test with Lexiscan while pt swings her legs in chair, with reports of headache and chin tightness, without any arrythmias, with normotensive response to injection. Nondiagnostic EKG for ischemia. In recovery, pt treated with IVP Aminophylline 75 mg to reverse Lexiscan after which pt feeling back to baseline. Nuclear images pending. Test reviewed with Dr. Michele. Referred By: Edmundo Rutherford Electronically Signed By: Ankit Rajan
--- NOTE | 2025-03-22 08:10 | CA_ITS ---
Transthoracic Echocardiogram Patient (Last, First, Middle): Marce Harding, Gender: Female Date of : 1960 Age: 65 Procedure Date: 03/22/2025 Procedure Type: Transthoracic Echocardiogram Location: OP Height: 152. 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 Study Quality: Adequate ECG Rhythm: Sinus Conclusions: - 1. Normal LV ejection fraction of 60 65% with grade 1 diastolic dysfunction 2. Normal cardiac valvular Dopplers 3. Normal RV systolic pressure 4. No gross pericardial effusion Findings Left Ventricle Normal left ventricular size, thickness, and systolic function. The visually estimated ejection fraction is between 60-65%. Spectral Doppler is indicative of an impaired relaxation filling pattern. E/E prime ratio is <8, consistent with normal filling pressures. Evidence suggests grade I (mild) diastolic dysfunction. Right Ventricle Normal right ventricular cavity size and systolic function. Atria Both atria are normal in size. There is no evidence of interatrial shunt. Aortic Valve Normal aortic valve structure and function. There is no aortic valve stenosis. There is no aortic valve regurgitation. Mitral Valve Likely normal mitral valve structure and function. There is trace mitral valve regurgitation. There is no mitral valve stenosis. Pulmonic Valve The pulmonic valve was not well visualized. Tricuspid Valve Likely normal tricuspid valve structure and function. There is trace tricuspid valve regurgitation. The right ventricular systolic pressure is normal. The right ventricular systolic pressure is 16 mmHg. Normal right atrial pressure. There is no evidence of pulmonary hypertension. Great Vessels All visible segments of the aorta are normal in size. The pulmonary artery was not well visualized. Venous The inferior vena cava is normal in size and collapses greater than 50% with inspiration. Pericardium/Pleural There is no evidence of pericardial effusion. Prior Study Comparison No prior study available for comparison. Measurements 2D Linear Measurements IVSd: 0.59 0.6-0.9/0.6-1.0 cm LVIDd: 4.22 3.9-5.3/4.2-5.9 cm LVIDd Index: 2.85 2.4-3.2/2.2-3.1 cm/m2 LVIDs: 3.01 2.0-3.6 cm LVPWd: 0.72 0.7-1.1 cm LA Diam: 3.50 2.7-3.8/3.0-4.0 cm LAIDs Index: 2.36 1.5-2.3 cm/m2 LV Mass: 98.01 67-162/88-224 g LV Mass Index: 66.22 43-95/49-115 g/m2 LVOT Diam: 1.90 3.0+(-)1.3 cm 2D Systolic Function EF 4C: 56.10 >55% EF 2C: 65.70 >55% EF BiP: 61.40 >55% Mitral Valve MV Pk E: 0.68 MV PK A: 0.79 MV Decel Time: 202.00 E/A: 0.90 E'Lateral: 9.68 E'Medial: 9.03 E/E' Med: 7.50 E/E' Lat: 7.00 PHT: 59.00 MVA PHT: 3.73 Decel Loup: 3.35 Aortic Valve AoV Pk Niko: 1.00 AoV Mn Niko: 0.71 AoV VTI: 0.24 AoV Pk Grad: 4.00 Aov Mn Grad: 2.00 SHAWANDA Cont.VTI: 2.27 LVOT LVOT Pk Niko: 0.75 LVOT Mn Niko: 0.55 LVOT VTI: 0.19 LVOT Pk Grad: 2.00 LVOT Mn Grad: 1.00 LVOT Diam: 1.90 LVOT Area: 2.84 Diastolic Function MV Pk E: 0.68 MV Pk A: 0.79 E/A: 0.90 E'Medial: 9.03 E/E' Med: 7.50 E' Laterial: 9.68 E/E' Lat: 7.00 Right Ventricle TAPSE (mm): 18.40 TVS' Niko: 8.81 Tricuspid Valve TR Pk Niko: 1.81 TR Pk Grad: 13.00 RA Press: 3.00 RVSP: 16.00 Great Vessels Aorta Sinus of Valsalva: 3.00 2.0-3.5 cm Ao Asc: 3.00 2.1-3.4 cm Ao Arch: 2.50 Pulmonary Valve PV Pk Niko: 0.60 Peak PV Grad: 1.00 Updated in Other Vendor System with Status of Final wJ Michele MD electronically signed on 03/23/2025 10:52:34 AM with status of Final
== END ==
LOC: HO.CARD 08:06
PROVIDERS: Visit Provider Internal Medicine
DX: R07.2 Precordial pain (principal); I25.10 Atherosclerotic heart disease of native coronary artery without angina pectoris
CPT/HCPCS: 78452; 93017; 93306; A9500; J0280; J2785

== ENCOUNTER → 2025-03-22 08:10 | Outpatient (BNV) | payer MEDICARE, BC, SELFPAY | DX: R06.02 Shortness of breath (principal) | CPT/HCPCS: 78452; 93016; 93018; 93320; 93325; 93350 ==

== ENCOUNTER 2025-03-27 14:49 | Outpatient (AMB) | payer MEDICARE, BC, SELFPAY ==
[2025-03-27 14:57] VITALS: BP 120/78; PULSE 93; BMI 22.4
--- NOTE | 2025-03-27 14:57 | MHC.OFFVIS ---
Vital Signs 03/27/25 14:57 Height 5 ft Weight 114 lb 10.246 oz BMI 22.4 BP 120/78 Blood Pressure Location Lt brachial Position Sitting Pulse 93 Intake Visit Reasons: 3mth/stress/mibi/echo Intake Note: 3 month follow-up stress and echo feeling good Lithographic Plate Maker Apprentice Required: No Sketcher: Sketcher Present Accompanied by: Family/Other Allergies No Known Allergies Allergy (Verified 01/28/25 08:32) Medication List - Last Reconciled 03/27/25 by Ankit Rajan NP aspirin 81 mg PO DAILY calcium carbonate (Tums) 200 mg PO BID cholecalciferol (vitamin D3) 50 mcg PO DAILY fluoxetine 10 mg PO DAILY rosuvastatin 5 mg PO DAILY terbinafine HCl 1% (Antifungal (terbinafine)) 1 appl topical BID HPI Comments Details: This is a 65-year-old female patient coming in for a follow-up visit. Patient with a history of hyperlipidemia, coronary artery disease status post LAD PCI in 2005, and current smoker. Patient was previously seen in the office for some shortness of breath. Subsequently underwent an echocardiogram and a myocardial perfusion study. Today patient is reporting feeling well overall and denies any cardiac symptoms including exertional chest pain, shortness of breath, palpitations, dizziness, orthopnea, PND, leg edema, presyncope, or syncope. Patient is affirming compliance with all her medications. Patient does make a note that she had had some gap in continuation of care due to issues with new PCP's establishment in the past few years. [facility] Medical History CAD (coronary artery disease) History of myocardial infarction Hyperlipidemia Nicotine dependence, cigarettes, uncomplicated Surgical History History of loop electrical excision procedure (LEEP) History of heart artery stent Family History Brother Mouth cancer Father Cerebral aneurysm Maternal Grandmother Heart attack Other Substance use disorder Social History Housing: House Alcohol intake: current Alcohol intake frequency: holidays/special occasions only Patient Tobacco Use Status: Current everyday Tobacco user Tobacco use type: Cigarette Cigarette Packs Per Day: 0.5 Cigarettes Per Day: 10 Years Smoked: (onset 14yo, 1/2-3/4ppd x 50yrs, now 1/4-1/2ppd - 30pyh) e-Cigarette/Vaping Use: Never Used Second Hand Smoke Exposure: Yes service: No Current occupational status: retired Cognitive needs: No Hearing needs: No Vision needs: Yes Review of Systems Const Denies chills, Denies fatigue, Denies fever(s), Denies frequent falls, Denies weakness, Denies weight gain and Denies weight loss ENT Denies dizziness Card Denies chest pain, Denies leg edema, Denies lightheadedness, Denies palpitations, Denies dyspnea, Denies dyspnea on exertion, Denies orthopnea and Denies other (loss of consciousness) Resp Denies cough, Denies dyspnea and Denies dyspnea on exertion GI Denies hematochezia and Denies change in stool character Musc Denies abnormal gait, Denies muscle weakness, Denies numbness, Denies radiating pain into limb and Denies tingling Neuro Denies abnormal gait, Denies dizziness, Denies frequent falls, Denies numbness, Denies tingling and Denies weakness Endo Denies fatigue and Denies palpitations Physical Exam Vital Signs: Last Vital Signs Pulse 93 03/27/25 14:57 BP 120/78 03/27/25 14:57 BMI result Body Mass Index 22.4 Assessment & Plan Assessment & Plan (1) CAD (coronary artery disease): Code(s): I25.10 - Atherosclerotic heart disease of [place] coronary artery without angina pectoris Category: Medical (2) Hyperlipidemia: Code(s): E78.5 - Hyperlipidemia, unspecified Category: Medical Plan 03/22/2025-echo study showed a normal LV systolic function with an ejection fraction between 60-65% with grade 1 diastolic dysfunction. 03/22/2025-patient underwent a myocardial perfusion study that showed prior infarction in the anterior wall and septum- most prominent towards the distal anterior wall and minimal to mild luiz-infarct ischemia. - reviewed with Dr. Rutherford. History of NE and coronary artery disease, status post LAD PCI in 2005. Patient is currently clinically stable with no cardiac symptoms. Continue lifelong aspirin therapy. We will also start the patient on a low-dose metoprolol therapy. If any new symptoms arise, we will consider diagnostic cardiac catheterization. The patient is in agreement with this plan. Most recent LDL is elevated at 130. Patient states that she was recently started on Crestor 5 mg and will increase this to 40 mg. We will repeat a lipid profile in 3 months. Blood pressure is within normal limits. Advised regular home monitoring with a goal of less than 130/80. Advised heart healthy diet, regular exercise, medication adherence, complete smoking cessation, and aggressive management of vascular risk factors. We will follow up with the patient in 4 months. In the interim, patient will call the office with any concerns or change in symptoms. Advised patient to seek ER care in case of exertional chest pain not resolved with rest. This note was generated using voice recognition software. While every effort has been made to ensure accuracy and proper direct support professional, there may be occasional errors that could affect the content or meaning of the described symptoms. Orders: Orders Basic Metabolic Panel 3 Months I25.10 - Atherosclerotic heart disease of [place] coronary artery without angina pectoris Lipid Panel 3 Months I25.10 - Atherosclerotic heart disease of [place] coronary artery without angina pectoris Liver Panel 3 Months I25.10 - Atherosclerotic heart disease of [place] coronary artery without angina pectoris Medications: New metoprolol succinate ER 25 mg PO DAILY 90 tabs 3RF rosuvastatin 40 mg PO DAILY 90 tabs 3RF Discontinued rosuvastatin Discontinued Reason: Doctor's Order 5 mg PO DAILY 90 tabs 3RF Coding Level of Care Code Est Pt Level 4 (53525) Complex EM visit Add On G2211 Diagnoses CAD (coronary artery disease) I25.10 Hyperlipidemia E78.5 Time Spent (min) 32 Comment Time spent in reviewing the chart, test results, assessment, counseling and documentation.
== END 2025-03-27 15:28 | disposition home or self-care (01) ==
LOC: HO.HCS 14:50
DX: I25.10 Atherosclerotic heart disease of native coronary artery without angina pectoris (principal); E78.5 Hyperlipidemia, unspecified
CPT/HCPCS: 99214; G2211

== ENCOUNTER → 2025-03-27 14:49 | Outpatient (BNVA) | payer MEDICARE, BC, SELFPAY | DX: I25.10 Atherosclerotic heart disease of native coronary artery without angina pectoris (principal); E78.5 Hyperlipidemia, unspecified | CPT/HCPCS: 99212 ==

== ENCOUNTER 2025-04-29 08:20 | Outpatient (AMB) | payer MEDICARE, BC, SELFPAY ==
--- NOTE | 2025-04-29 08:23 | MHC.PC.OV ---
Vital Signs 04/29/25 08:24 Height 5 ft Weight 120 lb 4 oz BMI 23.5 BP 124/68 Blood Pressure Location Lt brachial Position Sitting Pulse 84 Pulse Source Pulse Oximeter Temp 97.1 F Temp Source Temporal Artery Scan Pulse Oximetry (%) 97 Oxygen Delivery Method Room Air Intake Visit Reasons: f/u HLD and rash Accompanied by: Spouse Allergies No Known Allergies Allergy (Verified 04/29/25 08:28) Medication List - Last Reconciled 04/29/25 by Ruby Baltazar PA-C aspirin 81 mg PO DAILY calcium carbonate (Tums) 200 mg PO BID cholecalciferol (vitamin D3) 50 mcg PO DAILY fluoxetine 10 mg PO DAILY metoprolol succinate ER 25 mg PO DAILY rosuvastatin 40 mg PO DAILY terbinafine HCl 1% (Antifungal (terbinafine)) 1 appl topical BID Tobacco use date assessed: 04/29/25 Fall risk assessment: No Falls in past year Last assessed Fall Risk: 04/29/25 Dental Screening Dental Screen Date: 04/29/25 Did you have a dental visit in the last 12 months?: No Did you have a dental problem in the last 6 months where you did not have access to dental care?: No Was dental information given to patient?: Patient has dentist HPI f/u HLD and rash HPI Details 64-year-old female with past medical history of hyperlipidemia, coronary artery disease and history of myocardial infarction last seen 01/2025 coming in for follow up.?In review of the notes, patient was seen by Cardiology 03/2025 her rosuvastatin was increased to 40 mg with repeat cholesterol in 3 months and started on low-dose metoprolol. Presenting for follow-up on multiple conditions including a rash, smoking cessation, coronary artery disease, hyperlipidemia, and hip pain. The patient reports a persistent rash that has not fully resolved with previous treatment. She has been using a cream that provided some relief but ran out of it and did not get a refill. The rash is described as having white edges and hard scabs. There is a family history of similar skin conditions, but the current presentation does not fully match psoriasis. The patient continues to smoke despite previous attempts to quit using nicotine patches, which made her feel unwell. She is considering trying Wellbutrin again, which she had used in the past with some success. The patient has a history of a heart attack, making smoking cessation a priority. The patient has a history of coronary artery disease with stent placement. Recent tests, including a stress test, showed reassuring results, but there was a note about suboptimal flow through the stent. The patient is asymptomatic with no chest pain or dyspnea reported. The patient's cholesterol levels were previously high, leading to an increase in her rosuvastatin dosage. The goal is to maintain cholesterol levels below 70 mg/dL due to her coronary artery disease and stent. The patient reports pain in the hip area, which affects her mobility. The pain is described as tender and possibly related to a bursa or muscular issue. An x-ray of the hip is planned to further investigate the cause. [facility] Medical History CAD (coronary artery disease) History of myocardial infarction Hyperlipidemia Nicotine dependence, cigarettes, uncomplicated Surgical History History of loop electrical excision procedure (LEEP) History of heart artery stent Family History Brother Mouth cancer Father Cerebral aneurysm Maternal Grandmother Heart attack Other Substance use disorder Social History Housing: House Alcohol intake: current Alcohol intake frequency: holidays/special occasions only Patient Tobacco Use Status: Current everyday Tobacco user Tobacco use type: Cigarette Cigarette Packs Per Day: 0.5 Cigarettes Per Day: 10 Years Smoked: (onset 14yo, 1/2-3/4ppd x 50yrs, now 1/4-1/2ppd - 30pyh) e-Cigarette/Vaping Use: Never Used Second Hand Smoke Exposure: Yes service: No Current occupational status: retired Cognitive needs: No Hearing needs: No Vision needs: Yes Questionnaire PHQ-9 Over the last 2 weeks, how often have you been bothered by any of the following problems? 1. Little interest or pleasure in doing things: not at all 2. Feeling down, depressed, or hopeless: not at all 3. Trouble falling or staying asleep, or sleeping too much: nearly every day 4. Feeling tired or having little energy: several days 5. Poor appetite or overeating: not at all 6. Feeling bad about yourself - or that you are a failure or have let yourself or your family down: several days 7. Trouble concentrating on things, such as reading the newspaper or watching television: nearly every day 8. Moving or speaking so slowly that other people could have noticed. Or the opposite - being so fidgety or restless that you have been moving around a lot more than usual: nearly every day 9. Thoughts that you would be better off or of hurting yourself in some way: not at all Total score: 11 Depression Screening Interpretation: Positive Depression Screening Follow-up: Existing condition and New Medication prescribed Depression Screening Done: Yes 70903 - PHQ-9 Billing: Yes Source: Developed by Drs. Varghese Cheung, Luisa Broussard, Mike Reece and colleagues, with an educational ravi from [employer]. Thrive Questionnaire Date Thrive assessed: 10/29/24 I am a: Patient What is your living situation today?: I have a steady place to live Within the past 12 months, did the food you bought not last and you didn't have the money to get more?: I choose not to answer this question Within the past 12 months, did you worry whether your food would run out before you got money to buy more?: I choose not to answer this question Do you have trouble paying for medicines?: I choose not to answer this question Do you have trouble getting transportation to medical appointments?: I choose not to answer this question Do you have trouble paying your heating and electricity bill?: I choose not to answer this question Do you have trouble taking care of your child, family member or friend?: I choose not to answer this question Do you have trouble with day-to-day activities such as bathing, preparing meals, shopping, managing finances, etc.?: I choose not to answer this question Are you currently unemployed and looking for a job?: I choose not to answer this question Are you interested in more education?: I choose not to answer this question Please select the resources that you would like help with: None Currently or been in a relationship where the following occur: I choose not to answer THRIVE Score: 0 AUDIT C Alcohol Use Questionnaire (AUDIT-C) 1. How often do you have a drink containing alcohol?: Monthly or less 2. How many drinks containing alcohol do you have on a typical day when you are drinking?: 3 or 4 3. How often do you have six or more drinks on one occasion?: Never Total Score: 2 SOCORRO-7 AMB Questionnaire SOCORRO-7 Date SOCORRO - 7 assessed: 10/29/24 Feeling nervous, anxious, or on edge: 0 = Not at all Not being able to stop or control worryin = Not at all Worrying too much about different things: 0 = Not at all Trouble relaxin = Not at all Being so restless that it is hard to sit still: 0 = Not at all Becoming easily annoyed or irritable: 0 = Not at all Feeling afraid as if something awful might happen: 0 = Not at all Total SOCORRO-7 score (0-4 normal; 5-9 mild; 10-14 moderate; 15-21 severe): 0 Source: Developed by Drs. Varghese Cheung, Luisa Broussard, Mike Reece and colleagues, with an educational ravi from [employer]. Review of Systems Const Denies body aches, Denies chills, Denies fever(s), Denies headache(s) and Denies poor appetite Eyes Reports no additional complaints ENT Denies dysphagia, Denies dizziness, Denies headache(s) and Denies odynophagia Card Denies chest pain, Denies syncope, Denies edema, Denies irregular heart rhythm, Denies lightheadedness and Denies dyspnea Resp Denies cough and Denies dyspnea GI Denies abdominal pain, Denies constipation, Denies dysphagia, Denies diarrhea, Denies nausea, Denies odynophagia and Denies vomiting Reports no additional complaints Musc Details: left hip pain Reports no additional complaints and Denies abnormal gait Skin/Breast Reports system reviewed and no additional complaints, except as documented Neuro Denies abnormal gait, Denies dizziness, Denies syncope and Denies headache(s) Psych Reports no additional complaints Physical exam (Primary Care) Vital Signs: Last Vital Signs Temp 97.1 F 04/29/25 08:24 Pulse 84 04/29/25 08:24 BP 124/68 04/29/25 08:24 Pulse Ox 97 04/29/25 08:24 Oxygen Delivery Method Room Air 04/29/25 08:24 BMI result Body Mass Index 23.5 Tobacco/Smoking Status: Tobacco use Status Tobacco use date assessed 04/29/25 04/29/25 08:28 Patient Tobacco Use Status Current everyday Tobacco 04/29/25 08:28 Tobacco use type Cigarette 04/29/25 08:28 e-Cigarette/Vaping Use Never Used 04/29/25 08:28 PHQ-9: PHQ-9 Score PHQ-9: Total score 11 04/29/25 08:58 Depression Screening Interpretation: Positive Depression Screening Follow-up: Existing condition and New Medication prescribed Thrive Assessment: Date of Thrive Assessment Date Thrive assessed 10/29/24 04/29/25 08:28 Currently or been in a relationship where the following occur: I choose not to answer Const General: cooperative, healthy appearing, comfortable and no acute distress Orientation/consciousness: patient oriented x3 HENMT Head: Yes normocephalic Ears: hearing grossly normal bilaterally General nose exam: Normal external nose present Eyes General: appearance normal, both eyes and all related structures Conjunctivae: conjunctivae normal Neck Neck: Yes full ROM and Yes no lymphadenopathy Resp Effort & Inspection: normal respiratory effort Auscultation: clear to auscultation bilaterally, no crackles, no rales, no rhonchi and no wheezes Cardio Rate: regular rate Rhythm: regular rhythm Back/Spine/Pelvis Other: tenderness to palp of lateral aspect of left hip Skin Other: patches of scaling, itchy rash on the UE and back Neuro General: patient oriented x3 Gait exam (Neuro): Normal gait present Extrem General: Yes normal to inspection, Yes full ROM and No edema Psych Affect: normal affect Attitude: cooperative Insight: Good insight present (Psych) Judgement: Good judgement present (Psych) Coding Level of Care Code Est Pt Level 4 (79822) Diagnoses Hyperlipidemia E78.5 CAD (coronary artery disease) I25.10 Nicotine dependence, cigarettes, uncomplicated F17.210 Rash R21 Left hip pain M25.552 Additional Codes PHQ-9 - 86926 - PHQ-9 Billing: Yes ([id number]) Assessment & Plan Assessment & Plan (1) Hyperlipidemia: Code(s): E78.5 - Hyperlipidemia, unspecified Category: Medical Plan: Avoid foods that are high in cholesterol such as red meat, fried foods, eggs and baked goods. Triglyceride goal of less than 150 and LDL goal of less than 70. Patient was recently started on rosuvastatin 40 mg by her show card writer and she will have repeat labs in 4 months. (2) CAD (coronary artery disease): Comment: Echocardiogram completed 03/22/2025 showed normal LV systolic function with ejection fraction between 60-65%. Myocardial perfusion study showed prior infarction in the anterior wall and septum most prominent towards the distal anterior wall and minimal to mild luiz-infarct ischemia. s/p PCI 2005 Code(s): I25.10 - Atherosclerotic heart disease of [place] coronary artery without angina pectoris Category: Medical Plan: She may cardiology myocardial perfusion study in echocardiogram reviewed at that time. Determined lifelong aspirin therapy, low-dose metoprolol initiation and increase rosuvastatin to 40 mg. She will have repeat labs with a show card writer in 4 months. Strongly recommend smoking cessation. (3) Nicotine dependence, cigarettes, uncomplicated: Comment: (onset 14yo, 1/2-3/4ppd x 50yrs, now 10/27-1/2ppd - 30pyh) Code(s): F17.210 - Nicotine dependence, cigarettes, uncomplicated Category: Medical Plan: Lung cancer screening performed 10/2024 clear advised to follow up in 1 year. Smoking cigarettes and the use of tobacco can be harmful. We discussed the importance of stopping and options to aid in smoking cessation. NRT was not successfull and patient would like to try Wellbutrin, rx was sent (4) Rash: Code(s): R21 - Rash and other nonspecific skin eruption Category: Medical Plan: Terbinifine was previously working however given extent of hypopigmentation recommend further treatment by Dermatology and referral was placed today. For patches of scaling, itchy rash plan to trial topical steroid and follow up with derm. (5) Left hip pain: Code(s): M25.552 - Pain in left hip Category: Medical Plan: PLan to obtain hip and pelvis XR for further evaluation and consider PT. Plan The patient will be referred to dermatology for further evaluation of the persistent rash, and a steroid cream will be prescribed for symptomatic relief. Smoking cessation is emphasized due to the patient's history of coronary artery disease, and Wellbutrin will be initiated to aid in quitting smoking. The patient is advised to avoid smoking while using nicotine replacement therapies to prevent adverse effects. For coronary artery disease, the patient will continue with rosuvastatin to manage hyperlipidemia, with a target cholesterol level below 70 mg/dL. Follow-up with cardiology is scheduled for July to assess the status of the coronary artery disease and cholesterol management. An x-ray of the hip will be conducted to investigate the cause of hip pain, and physical therapy may be considered based on the results. This note was constructed using voice recognition software. While every effort has been made to ensure accuracy and computer numerical control grinder, still areas may have been included sometimes these areas may affect the content or meeting of the given symptoms. Total time spent caring for the patient today was 20 minutes. This includes time spent before the visit reviewing the chart, time spent during the visit, and time spent after the visit and documentation. Patient was informed and verbally consented to the use of an ambient scribe for clinic note documentation during this visit. Orders: Orders XR hip LT w PEL1V Today M25.552 - Pain in left hip Referrals Dermatology Referral R21 - Rash and other nonspecific skin eruption Medications: New bupropion HCl (smoking deter) 150 mg PO DAILY 30 tabs 0RF triamcinolone acetonide 0.1% 1 appl topical DAILY 80 grams 0RF Discontinued terbinafine HCl 1% (Antifungal (terbinafine)) Discontinued Reason: Patient no longer taking 1 appl topical BID 30 grams 0RF
[2025-04-29 08:24] VITALS: BP 124/68; PULSE 84; TEMP 36.2; O2SAT 97; BMI 23.5
== END 2025-04-29 09:06 | disposition home or self-care (01) ==
LOC: HO.HMCH 08:21
DX: E78.5 Hyperlipidemia, unspecified (principal); I25.10 Atherosclerotic heart disease of native coronary artery without angina pectoris; F17.210 Nicotine dependence, cigarettes, uncomplicated; R21 Rash and other nonspecific skin eruption; M25.552 Pain in left hip

== ENCOUNTER → 2025-04-29 08:20 | Outpatient (BNVA) | payer MEDICARE, BC, SELFPAY | DX: E78.5 Hyperlipidemia, unspecified (principal); I25.10 Atherosclerotic heart disease of native coronary artery without angina pectoris; R21 Rash and other nonspecific skin eruption; M25.552 Pain in left hip; F17.210 Nicotine dependence, cigarettes, uncomplicated; Z71.6 Tobacco abuse counseling | CPT/HCPCS: 96127; 99212 ==

== ENCOUNTER 2025-05-07 10:15 | Outpatient (REF) | payer MEDICARE, BC, SELFPAY ==
--- NOTE | ~2025-05-07 | XR_ITS ---
EXAMINATION: XR HIP, LEFT CLINICAL INFORMATION: M25.552 - Pain in left hip COMPARISON: None available. TECHNIQUE: AP upright, AP supine, and frog-leg lateral views of the left hip. FINDINGS: SI joints are symmetrical and not degenerated. Pubic symphysis joint is degenerated. No fracture line or cortical buckling or offset is identified. There is a large enthesophyte involving the anterolateral aspect of greater trochanter. Hip joint space is congruent and preserved. XR/XR hip LT w PEL1V IMPRESSION: Large greater trochanter enthesophyte involving the left hip. Electronically signed by: Renato Mcleod MD 05/07/2025 10:45 AM EDT
== END 2025-05-07 10:16 | disposition home or self-care (01) ==
LOC: HO.XRAY 10:15
PROVIDERS: PCP Internal Medicine
DX: M25.552 Pain in left hip (principal)
CPT/HCPCS: 73502

== ENCOUNTER → 2025-05-07 10:19 | Outpatient (BNV) | payer MEDICARE, BC, SELFPAY | PROVIDERS: PCP Internal Medicine; Visit Provider Radiology Diagnostic Radiology | DX: M25.552 Pain in left hip (principal) | CPT/HCPCS: 73502 ==

== ENCOUNTER 2025-05-13 08:07 | Outpatient (REF) | payer MEDICARE, BC, SELFPAY ==
--- NOTE | ~2025-05-13 | XR_ITS ---
EXAMINATION: XR HIP 2 OR MORE VIEWS LEFT HISTORY: M25.559 - Pain in unspecified hip COMPARISON: Comparison is made with the prior examination dated 05/07/2025. FINDINGS: A single AP view of the pelvis and two views of the left hip are submitted. Osseous mineralization is normal. There is no fracture or dislocation. The joint space is maintained. Again seen is heterotopic bone formation adjacent to the greater trochanter of the femur. There are vascular calcifications. 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 Otherwise unremarkable examination of the left hip. Electronically signed by: Varghese Gusman MD 05/13/2025 09:35 AM EDT
== END 2025-05-13 08:08 | disposition home or self-care (01) ==
LOC: HO.HOSX 08:07
PROVIDERS: Visit Provider Physician Assistant
DX: M25.552 Pain in left hip (principal)
CPT/HCPCS: 73502; 99202

== ENCOUNTER 2025-05-13 08:20 | Outpatient (AMB) | payer MEDICARE, BC, SELFPAY ==
--- NOTE | 2025-05-13 08:43 | MHC.OFFVIS ---
Vital Signs 05/13/25 08:48 Height 5 ft Weight 120 lb BMI 23.4 Intake Visit Reasons: New Pt - left hip pain Intake Note: Marce is a 65 year old female who presents today with her as a new patient for a evaluation of her left hip pain. History of a heart attack which caused her to have multiple falls. Patient reports ongoing pain for since 2017. She states that her pain is on the lateral aspect of the hip. Her pain is worse when she is walking and it leads to her limping. She has taken Aleve with relief. IMPRESSION: Large greater trochanter enthesophyte involving the left hip. Allergies No Known Allergies Allergy (Verified 05/13/25 08:46) HPI HPI New Pt - left hip pain: Details: Ms. Harding is a 65-year-old female who presents to the office today for evaluation of left hip pain. She reports that over the past 2 year she has had many injuries to the left hip which include falls and trauma by bumping into her furniture. 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 Of note, the patient did sustain a heart attack and sustained an anoxic brain injury as a result. [facility] Medical History CAD (coronary artery disease) History of myocardial infarction Hyperlipidemia Nicotine dependence, cigarettes, uncomplicated Surgical History History of loop electrical excision procedure (LEEP) History of heart artery stent Family History Brother Mouth cancer Father Cerebral aneurysm Maternal Grandmother Heart attack Other Substance use disorder Social History Housing: House Alcohol intake: current Alcohol intake frequency: holidays/special occasions only Patient Tobacco Use Status: Current everyday Tobacco user Tobacco use type: Cigarette Cigarette Packs Per Day: 0.5 Cigarettes Per Day: 10 Years Smoked: (onset 14yo, 1/2-3/4ppd x 50yrs, now 1/4-1/2ppd - 30pyh) e-Cigarette/Vaping Use: Never Used Second Hand Smoke Exposure: Yes service: No Current occupational status: retired Cognitive needs: No Hearing needs: No Vision needs: Yes Review of Systems Const All systems reviewed & are unremarkable except as noted in HPI and below Physical Exam Vital Signs: BMI result Body Mass Index 23.4 Const General: cooperative, healthy appearing and no acute distress Resp Effort & Inspection: normal respiratory effort and able to speak in complete sentences Extrem Other: Left hip: Normal to inspection. No ecchymosis, erythema, or edema. Full hip ROM in all planes. No tenderness to palpation over the greater trochanteric bursa. 5/5 strength with resisted hip flexion, knee extension, abduction, and abduction. Able to perform straight leg raise. NVI. Assessment & Plan Assessment & Plan (1) Left hip pain: Code(s): M25.552 - Pain in left hip Category: Medical (2) Heterotopic ossification of bone: Code(s): M89.8X9 - Other specified disorders of bone, unspecified site Category: Medical Plan Ms. Harding is a 65-year-old female who presents to the office today for evaluation of left hip pain. The patient reports the pain is located and points to the lateral aspect of the hip as well as into the buttock. She reports that over the past 2 year she has had many injuries to the left hip which include falls and trauma by bumping into her furniture. 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 Of note, the patient did sustain a heart attack and sustained an anoxic brain injury as a result. While in the office today, the patient describes her pain along the lateral aspect of the hip and into the buttock. I did discuss possibility of cortisone injection into the greater trochanteric bursa to see that this would help to alleviate some of her pain. The patient would like to defer at this time stating that this is not going to alleviate her symptoms and is looking for a permanent solution to her pain. Unfortunately, I do believe that there is some heterotopic bone formation that is nonsurgical at the greater troch that maybe associated with her anoxic brain injury. Patient is not interested in physical therapy at this time. I did offer the patient Celebrex which was sent to the pharmacy today. I have instructed the patient that she should not take any additional anti-inflammatories with this medication. For additional pain relief she may take Tylenol. I placed a referral to Dr. Montano for her input on the patient's pain and treatment. X-rays of the left hip which were obtained while in the office today and were reviewed by me, Malinda Moore PA-C, revealed heterotopic bone formation along the greater troch. Orders: Orders XR hip LT min 2V Today M25.559 - Pain in unspecified hip Medications: New celecoxib 200 mg PO BID 30 days 60 caps 0RF Coding Level of Care Code New Pt Level 3 (65710) Diagnoses Left hip pain M25.552 Heterotopic ossification of bone M89.8X9
[2025-05-13 08:48] VITALS: BMI 23.4
== END 2025-05-13 09:05 | disposition home or self-care (01) ==
LOC: HO.HOS 08:21
PROVIDERS: PCP Internal Medicine; Visit Provider Physician Assistant
DX: M25.552 Pain in left hip (principal); M89.8X9 Other specified disorders of bone, unspecified site
CPT/HCPCS: 99203

== ENCOUNTER → 2025-05-13 08:26 | Outpatient (BNV) | payer MEDICARE, BC, SELFPAY | PROVIDERS: Visit Provider Radiology Diagnostic Radiology | DX: M61.552 Other ossification of muscle, left thigh (principal) | CPT/HCPCS: 73502 ==

== ENCOUNTER 2025-08-02 11:45 | Outpatient (REF) | payer MEDICARE, BC, SELFPAY ==
[2025-08-02 13:07] LABS: Alanine Aminotransferase 17 U/L (0-31); Albumin Level 4.2 g/dL (3.5-5.0); Alkaline Phosphatase 87 U/L (39-117); Anion Gap 10 (12-20); Aspartate Amino Transferase 23 U/L (5-31); Blood Urea Nitrogen 24 mg/dL (9-16); Calcium 9.5 mg/dL (8.4-10.2); Carbon Dioxide 30 mmol/L (22-29); Chloride 109 mmol/L (96-108); Cholesterol 177 mg/dL (<200); Estimated Glomerular Filt Rate > 60; HDL Cholesterol 57 mg/dL (>40); Potassium 4.8 mmol/L (3.3-5.1); Sodium 144 mmol/L (135-145); Total Protein 7.1 g/dL (6.5-8.0); Triglycerides 80 mg/dL (<150)
== END 2025-08-02 11:46 | disposition home or self-care (01) ==
LOC: HO.LAB 11:45
PROVIDERS: PCP Internal Medicine
DX: I25.10 Atherosclerotic heart disease of native coronary artery without angina pectoris (principal)
CPT/HCPCS: 36415; 80048; 80061; 80076

== ENCOUNTER 2025-08-20 14:49 | Outpatient (AMB) | payer MEDICARE, BC, SELFPAY ==
[2025-08-20 14:53] VITALS: BP 112/58; PULSE 62; BMI 23.9
--- NOTE | 2025-08-20 14:53 | A.OFFVIS_ITS ---
Vital Signs 08/20/25 14:53 Height 5 ft Weight 122 lb 2.177 oz BMI 23.9 BP 112/58 L Blood Pressure Location Lt brachial Position Sitting Pulse 62 Pulse Source Pulse Oximeter Intake Visit Reasons: 4 mth s/p labs Clinical Research Specialist Required: No Accompanied by: Self / Same As Patient Allergies No Known Allergies Allergy (Verified 08/20/25 14:58) Medication List - Last Reconciled 08/20/25 by Ankit Rajan NP aspirin 81 mg PO DAILY bupropion HCl (smoking deter) 150 mg PO DAILY calcium carbonate (Tums) 200 mg PO BID celecoxib 200 mg PO BID cholecalciferol (vitamin D3) 50 mcg PO DAILY fluoxetine 10 mg PO DAILY metoprolol succinate ER 25 mg PO DAILY rosuvastatin 40 mg PO DAILY triamcinolone acetonide 0.1% 1 appl topical DAILY HPI Comments Details: This is a 65-year-old female patient coming in for a follow-up visit. Patient with a history of hyperlipidemia, coronary artery disease status post LAD PCI in 2005 and smoker. Patient was previously seen in the office for shortness of breath for which patient underwent an echocardiogram and myocardial perfusion study. Given her unstable LDL, we started her on 40 mg of Crestor and metoprolol. Today, patient is reporting feeling well overall without any cardiac symptoms of exertional chest pain, shortness breath, palpitations, dizziness, orthopnea, PND, leg edema, presyncope or syncope. Patient is reporting compliance with all her medications. Patient is on bupropion but unfortunately patient continues to smoke half a pack a day. [facility] Medical History CAD (coronary artery disease) History of myocardial infarction Hyperlipidemia Nicotine dependence, cigarettes, uncomplicated Surgical History History of loop electrical excision procedure (LEEP) History of heart artery stent Family History Brother Mouth cancer Father Cerebral aneurysm Maternal Grandmother Heart attack Other Substance use disorder Social History Housing: House Alcohol intake: current Alcohol intake frequency: holidays/special occasions only Patient Tobacco Use Status: Current everyday Tobacco user Tobacco use type: Cigarette Cigarette Packs Per Day: 0.5 Cigarettes Per Day: 10 Years Smoked: (onset 14yo, 1/2-3/4ppd x 50yrs, now 1/4-1/2ppd - 30pyh) e-Cigarette/Vaping Use: Never Used Second Hand Smoke Exposure: Yes service: No Current occupational status: retired Cognitive needs: No Hearing needs: No Vision needs: Yes Review of Systems Const Denies daytime sleepiness, Denies difficulty sleeping, Denies snoring, Denies stops breathing during sleep and Denies weakness Card Denies chest pain, Denies rapid heart rate, Denies irregular heart rhythm, Denies claudication, Denies leg edema, Denies lightheadedness, Denies palpitations, Denies dyspnea, Denies dyspnea on exertion, Denies orthopnea, Denies paroxysmal nocturnal dyspnea and Denies slow heart rate Resp Denies cough, Denies dyspnea, Denies dyspnea on exertion and Denies snoring GI Reports no additional complaints, Denies hematochezia, Denies change in stool character and Denies dyspepsia Musc Denies abnormal gait, Denies muscle weakness and Denies numbness Neuro Denies abnormal gait, Denies numbness and Denies weakness Endo Denies palpitations Physical Exam Vital Signs: Last Vital Signs Pulse 62 08/20/25 14:53 BP 112/58 L 08/20/25 14:53 BMI result Body Mass Index 23.9 Const General: cooperative, healthy appearing, comfortable and no acute distress Orientation/consciousness: patient oriented x3 HEENT Head: Yes normal to inspection Neck Neck: Yes normal visual inspection, Yes trachea midline and Yes supple Chest Chest palpation & inspection: normal inspection of the chest Resp Effort & Inspection: normal respiratory effort Auscultation: clear to auscultation bilaterally, no crackles, no rales, no rhonchi and no wheezes Cardio Jugular venous distension: no JVD Palpation: normal PMI Rate: regular rate Rhythm: regular rhythm Heart sounds: S1 normal heart sound present, S2 normal heart sound present, no click, no gallops, no murmurs and no rubs Peripheral pulses: Peripheral pulses 2+ throughout GI Inspection: Yes normal to inspection Palpation (GI): Soft to palpation Auscultation: normal bowel sounds Skin General skin exam: no rashes or lesions noted Neuro General: patient oriented x3 Extrem General: Yes normal to inspection, No no pedal edema and No calf tenderness Psych Appearance: grossly normal Mental Status: mental status grossly normal Speech and movement: Normal speech and movement present Assessment & Plan Assessment & Plan (1) CAD (coronary artery disease): Comment: Echocardiogram completed 03/22/2025 showed normal LV systolic function with ejection fraction between 60-65%. Myocardial perfusion study showed prior infarction in the anterior wall and septum most prominent towards the distal anterior wall and minimal to mild luiz-infarct ischemia. s/p PCI 2005 Code(s): I25.10 - Atherosclerotic heart disease of [place] coronary artery without angina pectoris Category: Medical (2) Hyperlipidemia: Code(s): E78.5 - Hyperlipidemia, unspecified Category: Medical (3) Nicotine dependence, cigarettes, uncomplicated: Comment: (onset 14yo, 1/2-3/4ppd x 50yrs, now 10/27-1/2ppd - 30pyh) Code(s): F17.210 - Nicotine dependence, cigarettes, uncomplicated Category: Medical Plan 03/22/2025-echo study showed a normal LV systolic function with an ejection fraction between 60-65% with grade 1 diastolic dysfunction. 03/22/2025-patient underwent a myocardial perfusion study that showed prior infarction in the anterior wall and septum- most prominent towards the distal anterior wall and minimal to mild luiz-infarct ischemia. - reviewed with Dr. Rutherford. Clinically stable and without any cardiac symptoms. Continue lifelong aspirin therapy. Continue metoprolol. If patient continues to have any new symptoms, we will consider diagnostic cardiac catheterization. Patient understanding of the plan. LDL recently improved to 104 however not within goal of less than 70. We will add Zetia to her current regimen. Continue high-dose statin therapy. We will repeat lipid profile in 3 months and patient understands that if that if her LDL is not within goal then she will need PCS K 19 inhibitor. Patient states that her daughter is cooking at home and it is mostly widely and therefore patient is going to try and change her dietary habits. Advised on complete smoking cessation, patient verbalizes understanding. Blood pressure today is well-controlled. Advised to monitor blood pressures at home with a goal less than 130/80. Advised on heart healthy diet, low fatty food, regular exercise, med compliance, and aggressive management of vascular risk factors. We will follow up with the patient in 4 months. In the interim, patient will call the office with any concerns or change in symptoms. Advised patient to seek ER care in case of exertional chest pain not resolved with rest. This note was generated using voice recognition software. While every effort has been made to ensure accuracy and proper research electrician, there may be occasional errors that could affect the content or meaning of the described symptoms. Orders: Orders Lipid Panel 3 Months E78.5 - Hyperlipidemia, unspecified, I25.10 - Atherosclerotic heart disease of [place] coronary artery without angina pectoris Medications: New ezetimibe 10 mg PO DAILY 90 tabs 3RF Coding Level of Care Code Est Pt Level 4 (81804) Complex EM visit Add On G2211 Diagnoses CAD (coronary artery disease) I25.10 Hyperlipidemia E78.5 Nicotine dependence, cigarettes, uncomplicated F17.210 Time Spent (min) 33 Comment Time spent in reviewing the chart, test results, assessment, counseling and documentation.
== END 2025-08-20 15:16 | disposition home or self-care (01) ==
LOC: HO.HCS 14:50
DX: I25.10 Atherosclerotic heart disease of native coronary artery without angina pectoris (principal); E78.5 Hyperlipidemia, unspecified; F17.210 Nicotine dependence, cigarettes, uncomplicated
CPT/HCPCS: 99214; G2211

== ENCOUNTER → 2025-08-20 14:49 | Outpatient (BNVA) | payer MEDICARE, BC, SELFPAY | DX: I25.10 Atherosclerotic heart disease of native coronary artery without angina pectoris (principal); E78.5 Hyperlipidemia, unspecified; F17.210 Nicotine dependence, cigarettes, uncomplicated | CPT/HCPCS: 99212 ==

== ENCOUNTER 2025-08-23 11:25 | Outpatient (AMB) | payer MEDICARE, BC, SELFPAY ==
--- NOTE | 2025-08-23 11:30 | MHC.OFFVIS ---
Intake Visit Reasons: New Pt - left hip pain Intake Note: Marce is a 65 year old female who presents today as a new patient for her left hip pain. Patient was referred by her PCP 05/07/25. At today's visit she states that she has had left hip pain for the past 20 years but in the last five years is when the pain increased. She states that she has not tried physical therapy or at home exercises. Patient states that since her office visit with 05/13/25 she felt that the Celecoxib 200mg which she was prescribed gave her relief. She stated that she noticed that she had a bump on her left hip since April of this year. Allergies No Known Allergies Allergy (Verified 08/20/25 14:58) Medication List - Last Reconciled 08/23/25 by Bailey Jimenez MD aspirin 81 mg PO DAILY bupropion HCl (smoking deter) 150 mg PO DAILY calcium carbonate (Tums) 200 mg PO BID celecoxib 200 mg PO BID cholecalciferol (vitamin D3) 50 mcg PO DAILY ezetimibe 10 mg PO DAILY fluoxetine 10 mg PO DAILY metoprolol succinate ER 25 mg PO DAILY rosuvastatin 40 mg PO DAILY triamcinolone acetonide 0.1% 1 appl topical DAILY HPI Comments Details: Patient previously seen by Malinda MALCOLM for left hip pain. X-rays showed possible ossification just outside of greater trochanter. Referred to physiatry for further evaluation and treatment. She denies previous injury or fracture to the hip. She did remember falling on it 18 years ago. Painful depending on activity. Especially after the morning. Left lateral hip, feels like there is a palpable bump in the muscle. No lower back pain. No numbness. No weakness. Twin sister has RA. [facility] Medical History CAD (coronary artery disease) History of myocardial infarction Hyperlipidemia Nicotine dependence, cigarettes, uncomplicated Surgical History History of loop electrical excision procedure (LEEP) History of heart artery stent Family History Brother Mouth cancer Father Cerebral aneurysm Maternal Grandmother Heart attack Other Substance use disorder Social History Housing: House Alcohol intake: current Alcohol intake frequency: holidays/special occasions only Patient Tobacco Use Status: Current everyday Tobacco user Tobacco use type: Cigarette Cigarette Packs Per Day: 0.5 Cigarettes Per Day: 10 Years Smoked: (onset 14yo, 1/2-3/4ppd x 50yrs, now /4-1/2ppd - 30pyh) e-Cigarette/Vaping Use: Never Used Second Hand Smoke Exposure: Yes service: No Current occupational status: retired Cognitive needs: No Hearing needs: No Vision needs: Yes Review of Systems Const All systems reviewed & are unremarkable except as noted in HPI and below Physical Exam Exam Exam: Constitutional: Patient appears to be in no acute distress, well nourished and well developed. Patient was appropriately conversant and oriented. Good historian. MSK: Inspection reveals appropriate head and neck positioning. No specific abnormalities found on inspection of the spine and all extremities. No pain with palpation over the lumbar area. No palpable mass on left hip or buttocks. No SI joint tenderness. No GT tenderness. No tenderness over ITB. Lumbar ROM was full. Bilateral hip, knee and ankle ROM WNL. No ligamentous laxity or crepitance. No increased effusion. Strength is 5/5 in all muscle groups tested. No increased tone noted. Neurological: Mood appears normal, good affect, and appropriate for the circumstances. Neurologic examination of the upper and lower extremities was nonfocal with intact sensation, muscle stretch reflexes and without focal motor deficits. Leal?s negative bilaterally. Babinski was down going bilaterally. Clonus was negative. Gait is non-antalgic without loss of balance. Results Reviewed Results Reviewed: I independently reviewed the results of the following: Can hardly see the ossification from my independent review of the images. Ordering Physician: Malinda Moore PA-C Date of Service: 05/13/25 Procedure(s): XR hip LT min 2V Accession Number(s): [id number] cc: Malinda Moore PA-C~ EXAMINATION: XR HIP 2 OR MORE VIEWS LEFT HISTORY: M25.559 - Pain in unspecified hip COMPARISON: Comparison is made with the prior examination dated 05/07/2025. FINDINGS: A single AP view of the pelvis and two views of the left hip are submitted. Osseous mineralization is normal. There is no fracture or dislocation. The joint space is maintained. Again seen is heterotopic bone formation adjacent to the greater trochanter of the femur. There are vascular calcifications. 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 Otherwise unremarkable examination of the left hip. 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 Possible source of discomfort. But not debilitating. Discussed what HO is with patient. Usual 1st line of treatment is NSAIDs, but caution regarding long-term use given history of cardiac arrest. This is usually nonsurgical. More importantly I think she needs to build back her strength and endurance after deconditioning from cardiac arrest. She was willing to go to PT and then learn what home exercises or best for her. Due to over abundance of caution, we agreed on follow up in 6 months for repeat x-ray, to see if calcification increases in size. Call sooner if needed. Assessment and plan discussed with patient, and patient was agreeable. All questions were answered thoroughly. Bailey Jimenez MD, KJ Board Certified, [place] Board of Physical Medicine and Rehabilitation (ABPMR) Board Certified, [place] Board of Electrodiagnostic Medicine (ABEM) Orders: Orders PT Evaluation and Treatment Today M89.8X9 - Other specified disorders of bone, unspecified site Coding Level of Care Code New Pt Level 4 (77565) Diagnoses Heterotopic ossification M89.8X9
== END 2025-08-23 12:01 | disposition home or self-care (01) ==
LOC: HO.HOS 11:26
PROVIDERS: Visit Provider Physical Medicine & Rehabilitation
DX: M61.452 Other calcification of muscle, left thigh (principal)
CPT/HCPCS: 99213

== ENCOUNTER → 2025-08-23 11:25 | Outpatient (BNVA) | payer MEDICARE, BC, SELFPAY | PROVIDERS: Visit Provider Physical Medicine & Rehabilitation | DX: M25.552 Pain in left hip (principal); M89.8X9 Other specified disorders of bone, unspecified site | CPT/HCPCS: 99212 ==

== ENCOUNTER 2025-08-30 08:57 | Outpatient (AMB) | payer MEDICARE, BC, SELFPAY ==
[2025-08-30 09:04] VITALS: BP 120/72; PULSE 76; TEMP 36.3; O2SAT 99; BMI 24.1
--- NOTE | 2025-08-30 09:04 | MHC.PC.OV ---
Vital Signs 08/30/25 09:04 Height 5 ft Weight 123 lb 8 oz BMI 24.1 BP 120/72 Blood Pressure Location Lt brachial Position Sitting Pulse 76 Pulse Source Pulse Oximeter Temp 97.3 F Temp Source Temporal Artery Scan Pulse Oximetry (%) 99 Oxygen Delivery Method Room Air Intake Visit Reasons: f/u CAD Accompanied by: Spouse Allergies No Known Allergies Allergy (Verified 08/30/25 09:24) Medication List - Last Reconciled 08/30/25 by Ruby Baltazar PA-C aspirin 81 mg PO DAILY bupropion HCl (smoking deter) 150 mg PO DAILY calcium carbonate (Tums) 200 mg PO BID celecoxib 200 mg PO BID cholecalciferol (vitamin D3) 50 mcg PO DAILY ezetimibe 10 mg PO DAILY fluoxetine 10 mg PO DAILY metoprolol succinate ER 25 mg PO DAILY rosuvastatin 40 mg PO DAILY triamcinolone acetonide 0.1% 1 appl topical DAILY Tobacco use date assessed: 04/29/25 Fall risk assessment: No Falls in past year Last assessed Fall Risk: 04/29/25 Dental Screening Dental Screen Date: 04/29/25 Did you have a dental visit in the last 12 months?: No Did you have a dental problem in the last 6 months where you did not have access to dental care?: No Was dental information given to patient?: Patient has dentist HPI f/u CAD HPI Details 65-year-old female with past medical history of hyperlipidemia, coronary artery disease and history of myocardial infarction last seen 04/2025 coming in for follow up.? In review of the notes, patient was seen by Orthopedics 07/2025 physical therapy.? She is seen by Cardiology 07/2025 advised smoking cessation and Zetia was added to medication regimen for better cholesterol control. Presenting for a follow-up visit. The patient experiences hip pain that was temporarily relieved with a prescribed anti-inflammatory medication (Celebrex). She was seen by orthopedics and referred to a group rooms coordinator, who determined she is not a surgical candidate at this time and recommended physical therapy. The patient is a current smoker and is taking bupropion (Wellbutrin) 150 mg for smoking cessation but finds it has not been very helpful. She associates her smoking with social cues, as other members of her household smoke. The patient does not exercise and has experienced muscle atrophy in her legs, leading to pain with walking, which in turn limits her activity. [facility] Medical History CAD (coronary artery disease) History of myocardial infarction Hyperlipidemia Nicotine dependence, cigarettes, uncomplicated Surgical History History of loop electrical excision procedure (LEEP) History of heart artery stent Family History Brother Mouth cancer Father Cerebral aneurysm Maternal Grandmother Heart attack Other Substance use disorder Social History Housing: House Alcohol intake: current Alcohol intake frequency: holidays/special occasions only Patient Tobacco Use Status: Current everyday Tobacco user Tobacco use type: Cigarette Cigarette Packs Per Day: 0.5 Cigarettes Per Day: 10 Years Smoked: (onset 14yo, 1/2-3/4ppd x 50yrs, now 1/4-1/2ppd - 30pyh) e-Cigarette/Vaping Use: Never Used Second Hand Smoke Exposure: Yes service: No Current occupational status: retired Cognitive needs: No Hearing needs: No Vision needs: Yes Questionnaire PHQ-9 Over the last 2 weeks, how often have you been bothered by any of the following problems? 1. Little interest or pleasure in doing things: not at all 2. Feeling down, depressed, or hopeless: not at all 3. Trouble falling or staying asleep, or sleeping too much: not at all 4. Feeling tired or having little energy: not at all 5. Poor appetite or overeating: not at all 6. Feeling bad about yourself - or that you are a failure or have let yourself or your family down: not at all 7. Trouble concentrating on things, such as reading the newspaper or watching television: nearly every day 8. Moving or speaking so slowly that other people could have noticed. Or the opposite - being so fidgety or restless that you have been moving around a lot more than usual: not at all 9. Thoughts that you would be better off or of hurting yourself in some way: not at all Total score: 3 Depression Screening Interpretation: Positive Depression Screening Follow-up: Existing condition and New Medication prescribed Depression Screening Done: Yes 33261 - PHQ-9 Billing: Yes Source: Developed by Drs. Varghese Cheung, Luisa Broussard, Mike Reece and colleagues, with an educational ravi from [employer]. Thrive Questionnaire Date Thrive assessed: 10/29/24 I am a: Patient What is your living situation today?: I have a steady place to live Within the past 12 months, did the food you bought not last and you didn't have the money to get more?: I choose not to answer this question Within the past 12 months, did you worry whether your food would run out before you got money to buy more?: I choose not to answer this question Do you have trouble paying for medicines?: I choose not to answer this question Do you have trouble getting transportation to medical appointments?: I choose not to answer this question Do you have trouble paying your heating and electricity bill?: I choose not to answer this question Do you have trouble taking care of your child, family member or friend?: I choose not to answer this question Do you have trouble with day-to-day activities such as bathing, preparing meals, shopping, managing finances, etc.?: I choose not to answer this question Are you currently unemployed and looking for a job?: I choose not to answer this question Are you interested in more education?: I choose not to answer this question Please select the resources that you would like help with: None Currently or been in a relationship where the following occur: I choose not to answer THRIVE Score: 0 AUDIT C Alcohol Use Questionnaire (AUDIT-C) 1. How often do you have a drink containing alcohol?: Monthly or less 2. How many drinks containing alcohol do you have on a typical day when you are drinking?: 3 or 4 3. How often do you have six or more drinks on one occasion?: Never Total Score: 2 SOCORRO-7 AMB Questionnaire SOCORRO-7 Date SOCORRO - 7 assessed: 10/29/24 Feeling nervous, anxious, or on edge: 0 = Not at all Not being able to stop or control worryin = Not at all Worrying too much about different things: 0 = Not at all Trouble relaxin = Not at all Being so restless that it is hard to sit still: 0 = Not at all Becoming easily annoyed or irritable: 0 = Not at all Feeling afraid as if something awful might happen: 0 = Not at all Total SOCORRO-7 score (0-4 normal; 5-9 mild; 10-14 moderate; 15-21 severe): 0 Source: Developed by Drs. Varghese Cheung, Luisa Broussard, Mike Reece and colleagues, with an educational ravi from [employer]. Review of Systems Const Denies body aches, Denies chills, Denies fever(s), Denies headache(s) and Denies poor appetite Eyes Reports no additional complaints ENT Denies dizziness and Denies headache(s) Card Denies chest pain, Denies syncope, Denies edema, Denies irregular heart rhythm, Denies lightheadedness and Denies dyspnea Resp Denies cough and Denies dyspnea GI Denies abdominal pain, Denies nausea and Denies vomiting Reports no additional complaints Musc Reports no additional complaints and Denies abnormal gait Skin/Breast Reports system reviewed and no additional complaints, except as documented Neuro Denies abnormal gait, Denies dizziness, Denies syncope and Denies headache(s) Psych Reports no additional complaints Physical exam (Primary Care) Vital Signs: Last Vital Signs Temp 97.3 F 08/30/25 09:04 Pulse 76 08/30/25 09:04 BP 120/72 08/30/25 09:04 Pulse Ox 99 08/30/25 09:04 Oxygen Delivery Method Room Air 08/30/25 09:04 BMI result Body Mass Index 24.1 Tobacco/Smoking Status: Tobacco use Status Tobacco use date assessed 04/29/25 08/30/25 09:13 Patient Tobacco Use Status Current everyday Tobacco 08/30/25 09:13 Tobacco use type Cigarette 08/30/25 09:13 e-Cigarette/Vaping Use Never Used 08/30/25 09:13 PHQ-9: PHQ-9 Score PHQ-9: Total score 3 08/30/25 09:27 Depression Screening Interpretation: Positive Depression Screening Follow-up: Existing condition and New Medication prescribed Thrive Assessment: Date of Thrive Assessment Date Thrive assessed 10/29/24 08/30/25 09:13 Currently or been in a relationship where the following occur: I choose not to answer Const General: cooperative, healthy appearing, comfortable and no acute distress Orientation/consciousness: patient oriented x3 HENMT Head: Yes normocephalic Ears: hearing grossly normal bilaterally General nose exam: Normal external nose present Eyes General: appearance normal, both eyes and all related structures Conjunctivae: conjunctivae normal Neck Neck: Yes full ROM and Yes no lymphadenopathy Resp Effort & Inspection: normal respiratory effort Auscultation: clear to auscultation bilaterally, no crackles, no rales, no rhonchi and no wheezes Cardio Rate: regular rate Rhythm: regular rhythm Skin General skin exam: no rashes or lesions noted Neuro General: patient oriented x3 Gait exam (Neuro): Normal gait present Extrem General: Yes normal to inspection, Yes full ROM and No edema Psych Affect: normal affect Attitude: cooperative Insight: Good insight present (Psych) Judgement: Good judgement present (Psych) Coding Level of Care Code Est Pt Level 3 (76400) Diagnoses Hyperlipidemia E78.5 CAD (coronary artery disease) I25.10 Nicotine dependence, cigarettes, uncomplicated F17.210 Left hip pain M25.552 Additional Codes PHQ-9 - 17412 - PHQ-9 Billing: Yes ([id number]) Assessment & Plan Assessment & Plan (1) Hyperlipidemia: Code(s): E78.5 - Hyperlipidemia, unspecified Category: Medical Plan: Avoid foods that are high in cholesterol such as red meat, fried foods, eggs and baked goods. Triglyceride goal of less than 150 and LDL goal of less than 70. She is currently on Rosuvastatin and Zetia was recently added to regimen. Plan for repeat blood work by her board certified behavioral analyst. (2) CAD (coronary artery disease): Comment: Echocardiogram completed 03/22/2025 showed normal LV systolic function with ejection fraction between 60-65%. Myocardial perfusion study showed prior infarction in the anterior wall and septum most prominent towards the distal anterior wall and minimal to mild luiz-infarct ischemia. s/p PCI 2005 Code(s): I25.10 - Atherosclerotic heart disease of [place] coronary artery without angina pectoris Category: Medical Plan: Determined lifelong aspirin therapy, low-dose metoprolol, Zetia and rosuvastatin. She will have repeat labs with a board certified behavioral analyst in 3 months. Strongly recommend smoking cessation. (3) Nicotine dependence, cigarettes, uncomplicated: Comment: (onset 14yo, 1/2-3/4ppd x 50yrs, now 1/4-1/2ppd - 30pyh) Code(s): F17.210 - Nicotine dependence, cigarettes, uncomplicated Category: Medical Plan: Lung cancer screening performed 10/2024 clear advised to follow up in 1 year. Smoking cigarettes and the use of tobacco can be harmful. We discussed the importance of stopping and options to aid in smoking cessation. She feels the Wellbutrin has been mildly effective plan to increase to BID (4) Left hip pain: Code(s): M25.552 - Pain in left hip Category: Medical Plan: The patient has significant muscle atrophy in her legs from a lack of physical activity, which contributes to her pain and limited mobility. The upcoming physical therapy will also be crucial for rebuilding muscle strength. Plan This note was constructed using voice recognition software. While every effort has been made to ensure accuracy and chief design branch, still areas may have been included sometimes these areas may affect the content or meeting of the given symptoms. Total time spent caring for the patient today was 20 minutes. This includes time spent before the visit reviewing the chart, time spent during the visit, and time spent after the visit and documentation. Patient was informed and verbally consented to the use of an ambient scribe for clinic note documentation during this visit. Medications: New bupropion HCl SR (Wellbutrin SR) 150 mg PO BID 180 tabs 0RF Discontinued bupropion HCl (smoking deter) Discontinued Reason: Patient no longer taking 150 mg PO DAILY 30 tabs 0RF
== END 2025-08-30 09:50 | disposition home or self-care (01) ==
LOC: HO.HMCH 08:58
DX: E78.5 Hyperlipidemia, unspecified (principal); I25.10 Atherosclerotic heart disease of native coronary artery without angina pectoris; F17.210 Nicotine dependence, cigarettes, uncomplicated; M25.552 Pain in left hip

== ENCOUNTER → 2025-08-30 08:57 | Outpatient (BNVA) | payer MEDICARE, BC, SELFPAY | DX: E78.5 Hyperlipidemia, unspecified (principal); I25.10 Atherosclerotic heart disease of native coronary artery without angina pectoris; M25.552 Pain in left hip; F17.210 Nicotine dependence, cigarettes, uncomplicated; Z71.6 Tobacco abuse counseling | CPT/HCPCS: 96127; 99212 ==

== ENCOUNTER 2025-10-14 10:45 | Outpatient (REF) | payer MEDICARE, BC, SELFPAY ==
--- NOTE | ~2025-10-14 | MM_ITS ---
EXAMINATION: MM SCREENING DIGITAL BREAST TOMOSYNTHESIS, BILATERAL CLINICAL INFORMATION: Screening. Asymptomatic. COMPARISON: Mammography: Comparison is made with available priors TECHNIQUE: Digital breast mammography with tomosynthesis is performed in both the craniocaudal and mediolateral oblique views along with computer-aided detection (CAD). FINDINGS: There are scattered areas of fibroglandular density. There are no significant masses, abnormal calcifications, or other abnormalities. MM/MM tomosynthesis screening BI IMPRESSION: No mammographic evidence of malignancy. ASSESSMENT: BI-RADS Category 1: Negative RECOMMENDATION: Routine annual mammography screening. 1 year F/U This examination should not preclude the clinical evaluation of a suspicious palpable abnormality. This patient's information was entered into a reminder system with a target due date for their next mammogram. Electronically signed by: Elen Stiles DO 10/16/2025 03:35 PM [facility]
== END 2025-10-14 10:46 | disposition home or self-care (01) ==
LOC: HO.MAMMO 10:45
DX: Z12.31 Encounter for screening mammogram for malignant neoplasm of breast (principal)
CPT/HCPCS: 77063; 77067

== ENCOUNTER → 2025-10-14 11:00 | Outpatient (BNV) | payer MEDICARE, BC, SELFPAY | PROVIDERS: Visit Provider Internal Medicine | DX: Z12.31 Encounter for screening mammogram for malignant neoplasm of breast (principal) | CPT/HCPCS: 77063; 77067 ==